=== PATIENT | male | born 1925 | race Caucasian/White ===

== ENCOUNTER 2017-01-03 21:31 | Inpatient (IN) | payer MEDICARE, OTHER ==
[~2017-01-03] VITALS: Ht 167.6 cm; Wt 66.0 kg
[2017-01-03 21:36] VITALS: BP 178/57; PULSE 106; RESP 24; O2SAT 94
--- NOTE | 2017-01-03 22:00 | ED.REPORT ---
HPI-Dyspnea / Wheezing Date of Service Jan 03, 2017 ED Provider: Wing Tavera MD An 89 year old male with a history of TIA, COPD and hypertension is brought to the ED via EMS due to shortness of breath. The pt began experiencing significant shortness of breath at 17:00, though he has been feeling the shortness of breath gradually increasing for two days. This has been accompanied by productive cough with yellow sputum. He denies chest pain, nausea or vomiting. The pt resides in assisted living. He is not on home oxygen but does have a rescue inhaler. His last use was today. The pt is taking Plavix. Nursing Notes Stated Complaint: DIFFICULTY BREATHING Chief Complaint: Respiratory Distress Nursing Notes Reviewed: Yes Allergies: Coded Allergies: iodine (Verified Allergy, Unknown, 01/03/17) General Time Seen by MD: 21:58 Chief Complaint Shortness of breath Hx Obtained From: Patient, Daughter, Other family..., EMS Arrived By: Ambulance Sudden in Onset?: No Onset Occurred: 2 days ago Symptom Duration: Since onset Recent Healthcare: Recent doctor visit, Recent hospitalization Similar Sx Previous: No Past Medical History Past Medical History TIA COPD hypertension Past Surgical History none reported Smoking History Unknown if Ever Smoker Social History Other Social History: Good social support, Lives in [facility] Ambulatory Status Walker Review of Systems Constitutional: Denies: Fever Respiratory: Reports: Prod cough, yellow, Shortness of breath Cardiovascular: Denies: Chest pain Musculoskeletal: Denies: Back pain, Neck pain Skin: Denies Rash Complete sys rev & neg: except as marked. GI: Denies: Nausea, Vomiting Physical Exam Initial Vital Signs Vital Signs (First) Date Time Temp Pulse Resp B/P Pulse Ox O2 Delivery O2 Flow Rate FiO2 01/03/17 21:36 38.0 106 24 178/57 94 Room Air 01/03/17 22:31 2 Initial VS: Reviewed General/Constitutional: Awake, Alert Neck: Atraumatic, Supple, Full range of motion Respiratory / Chest: Atraumatic, Breath sounds = bilat, No respiratory distress faint wheezes bilaterally Cardiovascular: Regular rhythm, Heart sounds NL, No murmurs Heart Rate / Rhythm: Positive: Tachycardia ENT: Atraumatic, Airway patent, Mucous membranes moist Abdomen: Atraumatic, Soft, Non-tender Back: Atraumatic, Full range of motion Lower Extremity / Pelvis / MS: Atraumatic, Full range of motion, No edema Skin: Atraumatic, Color NL, No rash, Warm, Dry Neurologic: Oriented X3, Speech NL, No motor deficits, No sensory deficits Head / Eyes: Atraumatic, Normocephalic, PERRL, EOMI Upper Extremity / MS: Atraumatic, Full range of motion Psychiatric: Affect NL, Mood NL Interpretation & Diagnostics Lab Results Interpretation Result Diagram: 01/03/17224601/03/172246 Test 01/03/17 22:47 01/03/17 23:04 01/03/17 23:58 White Blood Count 21.4th/mm3 (3.8-10.1) Red Blood Count 4.58mil/mm3 (4.40-5.80) Hemoglobin 14.4g/dL (13.8-17.2) Hematocrit 40.6% (41.0-50.0) Mean Corpuscular Volume 88.6fL (81-100) Mean Corpuscular Hemoglobin 31.4pg (27.0-35.0) Mean Corpuscular Hemoglobin Concent 35.5% (32.0-37.0) Red Cell Distribution Width 14.2% (12.3-15.4) Platelet Count 281bil/L (150-400) Neutrophils (%) (Auto) 96.5% (40-74) Lymphocytes (%) (Auto) 1.8% (14-46) Monocytes (%) (Auto) 1.3% (4-12) Eosinophils (%) (Auto) 0% (0-5) Basophils (%) (Auto) 0.1% (0-3) Prothrombin Time 10.5sec (8.1-12.5) Prothromb Time International Ratio 0.98ratio Sodium Level 132mEq/L (134-144) Potassium Level 3.5mEq/L (3.5-5.2) Chloride Level 94mEq/L (97-108) Carbon Dioxide Level 22mmol/L (18-29) Blood Urea Nitrogen 32mg/dL (8-27) Creatinine 0.82mg/dL (0.76-1.27) Estimat Glomerular Filtration Rate 94mL/min (>59) Glucose Level 94mg/dL (60-99) Lactic Acid Level 1.7mmol/L (0.4-2.0) Calcium Level 10.5mg/dL (8.5-10.1) Magnesium Level 1.5mg/dL (1.6-2.6) Total Bilirubin 0.8mg/dL (0.0-1.2) Aspartate Amino Transf (AST/SGOT) 23U/L (0-50) Alanine Aminotransferase (ALT/SGPT) 25U/L (0-44) Alkaline Phosphatase 75U/L (25-160) Troponin T 0.014ug/L (0.0-0.011) Pro-B-Type Natriuretic Peptide 2156pg/mL (0-486) Total Protein 6.8g/dL (6.4-8.4) Albumin 3.7g/dL (3.4-5.0) Urine Color Yellow (YELLOW) Urine Appearance Cloudy (CLEAR,HAZY) Urine pH 7.5 (5.0-8.0) Urine Specific Saxon 1.015 (1.003-1.035) Urine Protein Tracemg/dL (NEG,TRACE) Urine Glucose (UA) Negativemg/dL (NEGATIVE) Urine Ketones Negativemg/dL (NEGATIVE) Urine Occult Blood Trace (NEGATIVE) Urine Nitrite Positive (NEGATIVE) Urine Bilirubin Negative (NEGATIVE) Urine Urobilinogen Normalmg/dL (NORMAL) Urine Leukocyte Esterase Large (NEGATIVE) Urine RBC 3-10/hpf (0-2) Urine WBC Packed/hpf (0-5) Urine Epithelial Cells Few/hpf (NONE-MOD) Urine Crystals None seen (NONE SEEN) Urine Bacteria Many/hpf (NONE-FEW) Urine Hyaline Casts None/lpf (NONE) Urine Granular Casts None seen (NONE SEEN) Urine Waxy Casts None seen (NONE SEEN) Urine Red Blood Cell Casts None seen (NONE SEEN) Urine White Blood Cell Casts None seen (NONE SEEN) Urine Mucus None seen (None Seen) Urine Trichomonas None seen (NONE SEEN) Urine Yeast None (NONE SEEN) Urinalysis Comment None Urine Culture Reflexed Indicated Procalcitonin 0.17ng/mL (0.00-0.08) ECG Interpretation ECG Interpretation: sinus or ectopic atrial tachycardia with a rate of 103 LBBB Time: 21:51 Interpreted by: ED physician X-Ray Chest Interpretation Chest Xray Interpretation: right lower lobe pneumonia Interpretation / Wet Read by: Interpret - ED physician Re-Eval/Medical Decision Med Decision/Clinical Course 89-year-old male history of COPD, hypertension, CVA presenting with dyspnea times several days. He is not on oxygen at home. He lives in assisted living facility. Is not had any hospitalizations since August of this year when he was hospitalized for stroke. On arrival he is requiring 2 L of oxygen. Chest x-ray is suspicious right lower lobe pneumonia. Urine suggests UTI. Patient does not have any abdominal pain or urinary symptoms that he does have a history of UTI. Lactate is normal. His vital signs are stable. He is DNR/DNI. He will be admitted for Community acquired pneumonia and UTI. Given Rocephin and azithromycin after blood cultures. No fluids at this time given no evidence of sepsis and with apparent CHF and DO NOT INTUBATE therefore minimizing fluids. Source of Hx: EMS Re-Evaluation/Progress #1: Time of Eval: 21:58 Patient Status: Condition improved Re-Evaluation/Progress Note: Pt informed of the need for admission during the initial interview. The pt understands and agrees with the plan. All questions are addressed at this time. Re-Evaluation/Progress #2: Time of Eval: 23:32 Patient Status: Condition improved Re-Evaluation/Progress Note: Pt rechecked, who is resting. Radiology results and the need for admission are further discussed. 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 Hernandez, hospitalist, regarding pt's case. Dr. Hernandez agrees with the evaluation and agrees to admit the pt. Counseled Regarding: Diagnosis, Lab results, Need for admission Discharge & Departure Impression: Primary Impression: Right lower lobe pneumonia Pneumonia type: due to unspecified organism Qualified Code: J18.1 - Lobar pneumonia, unspecified organism Additional Impression: UTI (urinary tract infection) Urinary tract infection type: site unspecified Hematuria presence: without hematuria Qualified Code: N39.0 - Urinary tract infection, site not specified Disposition: ADMITTED TO HOSPITAL Discharge Condition All VS Reviewed: Yes Condition: Stable Scribe Attestation Portions of this note were transcribed by Shukri Roach. I, Dr. Tavera personally performed the history, physical exam and medical decision-making; I reviewed and confirmed the accuracy of the information in the transcribed note. Wing Tavera MD Jan 03, 2017 22:00 SHUKRI ROACH Jan 03, 2017 22:16
[2017-01-03] MEDS ORDERED: MethylprednisoLONE Sodium Succinate 62.5 mg/mL 2 mL Inj IVPUSH ONE (22:15)
[2017-01-03] MEDS ORDERED: Albuterol-Ipratropium 3 mL Inhalation Solution NEB ONE (22:15)
[2017-01-03 22:31] VITALS: PULSE 120; RESP 20; O2SAT 95
[2017-01-03 22:54] LABS: BASOPHILS % (AUTO) 0.1 % (0-3); EOSINOPHILS % (AUTO) 0 % (0-5); MONOCYTES % (AUTO) 1.3 % (4-12); Mean Corpuscular Hemoglobin 31.4 pg (27.0-35.0); Mean Corpuscular Volume 88.6 fL (81-100); NEUTROPHILS % (AUTO) 96.5 % (40-74); Platelet Count 281 bil/L (150-400)
[2017-01-03 23:06] LABS: INR 0.98 ratio
[2017-01-03 23:13] VITALS: BP 140/53; PULSE 102; RESP 23; O2SAT 95
[2017-01-03 23:15] LABS: TROPONIN T 0.014 ug/L (0.0-0.011)
[2017-01-03 23:16] LABS: APPEARANCE,URINE CLOUDY (CLEAR,HAZY); COLOR,URINE YELLOW (YELLOW); OCCULT BLOOD,URINE TRACE (NEGATIVE); PH,URINE 7.5 (5.0-8.0); UROBILINOGEN,URINE NORMAL (NORMAL)
[2017-01-03] MEDS ORDERED: 0.9% Sodium Chloride 500 ML IV ONE (23:19)
[2017-01-03] MEDS ORDERED: cefTRIAXone Inj 2,000 MG in Dextrose 5% Minibag Plus 50 ML IV ONE (23:20)
[2017-01-03] MEDS ORDERED: Azithromycin Inj 500 MG in Dextrose 5% 250 ML IV ONE (23:20)
[2017-01-03 23:27] LABS: Magnesium 1.5 mg/dL (1.6-2.6)
[2017-01-03] MEDS ORDERED: Alum-Mag Hydrox-Simeth 30 mL Suspension PO PRN ×2 (23:45)
[2017-01-03] MEDS ORDERED: Ondansetron 2 mg/mL 2 mL Inj IVPUSH PRN ×2 (23:45)
[2017-01-03] MEDS ORDERED: 0.9% Sodium Chloride 1,000 ML IV SCH (23:45)
[2017-01-03] MEDS ORDERED: Polyethylene Glycol (PEG) 17 Gm Powder PO PRN (23:45)
[2017-01-04] VITALS (15 sets, daily range): BP systolic 115–158; BP diastolic 40–72; PULSE 61–95; RESP 14–32; O2SAT 92–98
[2017-01-04] MEDS: Sodium Chloride LOK Flush 10 mL Syringe IVFLUSH SCH ×3 (00:30→17:08)
--- NOTE | 2017-01-04 02:27 | PCM.HPMED ---
Subjective Date of Service Jan 03, 2017 Primary Provider: Admitting Physician: Primary Care Physician: Twila Chang Attending Physician: Admit Status: From the Emergency Department Chief Complaint: Shortness of Breath History of Present Illness: Javi Avelar is an 89-year-old gentleman with a past medical history of transient ischemic attack, COPD, pulmonary hypertension, and hypertension presents with worsening shortness of breath starting 2 days ago. He says that he has had a productive cough with whitish-yellow sputum over the past week as well as increased difficulty breathing. At about 1700 yesterday, he began to experience significant shortness of breath. He does not use oxygen at home. He denies fevers, chills, nausea, and vomiting. He has not had any hospitalizations since August of 2016. He lives in a health center with assisted living in [place] and says that there may have been sick contacts there. He also complains of dry mouth and says that he does no drink enough water. He denies chest pain, diarrhea, constipation, or blood in stools. His last bowel movement was earlier today. He denies symptoms of urinary frequency, urgency, or hematuria, but mentions that his urine has had a foul odor recently. He has a history of urinary tract infections in the past. On arrival, his temperature was 38.0, HR 106, RR 24, 178/57, and he required oxygen 2L/min by nasal cannula. In the ED, his labs showed leukocytosis of 21.4 with neutrophilic predominance, decreased sodium 132, chloride 94, calcium 10.5 , magnesium was low 1.5, procalcitonin was 0.17, lactic acid was 1.7. His troponin was 0.014, and pro-BNP was 2156. Urinalysis was indicative of infection , showing positive nitrites, large leukocyte esterase, packed white blood cells , and many bacteria. In the ED, he received ceftriaxone and azithromycin. Review of Systems: A comprehensive review of systems was conducted with the patient and found to be negative except as above in the History of Present Illness. Allergies Coded Allergies: iodine (Verified Allergy, Unknown, 01/03/17) Home Medications Symbicort 160 mcg-4.5 mcg/actuation HFA aerosol inhaler inhale 2 puff by inhalation route 2 times every day in the morning and evening prednisone 20 mg tablet take (60MG/M2) by oral route every day for 5 days losartan 100 mg tablet take 1 tablet by oral route every day ATORVASTATIN 20MG TAB 1 TAB BY MOUTH EVERY DAY FOR CHOLESTEROL 09/29/201609/29 CLOPIDOGREL 75MG TAB 1 TAB BY MOUTH EVERY DAY FOR BLOOD CLOT PREVENTION 201609/29/2016 VENTOLIN 90MCG HFA (200 INH) INHALE 2 PUFFS BY MOUTH EVERY 4 HOURS NEEDED FOR COPD 09/29/2016 09/29/2016 LOSARTAN/HCTZ 100-25MG TAB 1 TAB BY MOUTH EVERY DAY FOR HTN 09/29/20162016 HYDRALAZINE 100MG TAB 1 TAB BY MOUTH 2 TIMES DAILY FOR HTN 09/29/20162016 SPIRIVA 18MCG DISK W/DEV INHALE 1 CAP BY MOUTH EVERY DAY FOR COPD (2 INHALATIONS PER CAPSULE) 09/29/2016 09/29/2016 CARVEDILOL 25MG TAB 1 TAB BY MOUTH 2 TIMES DAILY FOR CAD 09/29/2016 09/29/2016 PMH TIA COPD Hypertension MORELIA Hyperlipidemia BPH Surgical History None Reported Family History Brother: CAD Social History Hx Tobacco Use: Yes Smoking Status: Former Smoker Living Arrangement: Assisted Living Exam Vital Signs Vital Sign - Last Date Time Temp Pulse Resp B/P Pulse Ox O2 Delivery O2 Flow Rate FiO2 01/03/17 23:13 37.5 102 23 140/53 95 Nasal Cannula 2 Exam General: No acute distress, well-developed, well-nourished, appropriately interactive HEENT: Normocephalic, atraumatic. External ears without defect. Anicteric sclerae, moist conjunctivae. Dry mucosa. Neck: Supple with full range of motion. No jugular venous distension. No bruits. . Cardiovascular: Tachycardic, regular rhythm with no murmurs, rubs, or gallops appreciated Pulmonary: Decreased breath sounds bilaterally with crackles heard at both lung bases R>L, No wheezing. Use of accessory muscles. Abdomen: Bowel tones present. Soft, nontender, nondistended. No hepatosplenomegaly or masses appreciated. Extremities: No clubbing, cyanosis, edema, or lymphadenopathy appreciated. Skin: Dry skin, Normal temperature; no rash, ulcers, or subcutaneous nodules appreciated. Neurological: Cranial nerves grossly intact. Normal muscle strength, tone, and bulk. Reflexes, coordination, and sensory function within normal limits. Psychiatric: Normal mood and affect. Alert and oriented to person, place, and time. Lab and Diagnostics Labs Item Value Date Time Urine Color Yellow 01/03/172303 Urine Nitrite Positive 01/03/172303 Urine Leukocyte Esterase Large 01/03/172303 Urine WBC Packed /hpf 01/03/172303 Urine RBC 3-10 /hpf 01/03/172303 Urine Occult Blood Trace 01/03/172303 Urine Bacteria Many /hpf 01/03/172303 Result Diagram: 01/03/17224601/03/172246 12-lead ECG sinus or ectopic atrial tachycardia with a rate of 103 LBBB Assessment & Plan Javi Avelar is an 89-year-old gentleman with a past medical history of transient ischemic attack, COPD, pulmonary hypertension, and hypertension presents with worsening shortness of breath starting 2 days prior to admission. Sepsis secondary to UTI and Pneumonia, Present on Admission, active Meets criteria with Fever, leukocytosis and tachycardia. - Conservative IV fluid management - Patient has elevated BNP - Treat as below Pneumonia, Present on Admission, active Community Acquired Pneumonia likely as patient lives in an assisted living facility. Chest Xray shows right lower lobe consolidation. Differential includes CHF. - Recieved Ceftriaxone and azithromycin in the ED - MRSA swab, Resp Viral panel, procalcitonin, sputum culture, urinary strep pneumoniae and legionella ag - Blood cultures pending - Will continue azithromycin and ceftriaxone Complicated Urinary tract infection, Present on Admission, active UA with positive nitrite, large leukocyte esterase, packed WBC, many bacteria. - Urine cultures pending - Continue ceftriaxone COPD Exacerbation, Present on Admission, active Likely secondary to HCAP - Duoneb q4hwa - Budesonide q12h - Prednisone 40 mg for 4 more days, recieved 1 dose methylprednisolone 125 mg in the ED Hyponatremia, Present on Admission, active Sodium 132 on admission - Will hold IV fluids as patient has elevated BNP - Monitor Hypertension, Present on Admission, active Med Rec needs to be done. Per outpatient medication list, patient used to take carvedilol, hydralazine, HCTZ and losartan - Will do Carvedilol 25 mg BID for now - Continue other home meds after verified med rec History of TIA [facility], will continue Patient Status: Patient is admitted under inpatient status with expected length of stay greater than 2 midnights due to severity of presenting symptoms, risk of adverse event, and complexity of treatment plan. Code Status: DNR/DNI VTE Prophylaxis: Sub-Q Heparin (Unfractionated) VTE Mechanical Devices: Intermittant Pneumatic CD Resuscitation Status: DNR/DNI:Do Not Resuscitate/Intubate Attending Statement The patient was seen and examined together with Dr. Parnell on 01/03 and I agree with the history, exam and plan as outlined in the note above. Ellis Parnell DO Jan 04, 2017 00:00 ANTHONY CALZADA MD Jan 04, 2017 02:22 Ellis Hernandez MD Jan 04, 2017 05:24
[2017-01-04] MEDS: Heparin 5,000 Unit/mL Inj SUBQ SCH ×3 (02:43→17:09)
[2017-01-04] MEDS ORDERED: Vancomycin Inj 1,500 MG in 0.9% Sodium Chloride 500 ML IV ONE (03:00)
[2017-01-04] MEDS ORDERED: Piperacillin-Tazo 3.375 Gm Inj 3.375 GM in Dextrose 5% Minibag Plus 50 ML IV ONE (03:00)
[2017-01-04] MEDS ORDERED: 0.9% Sodium Chloride 0 ML ONE (03:11)
[2017-01-04] MEDS ORDERED: 0.9% Sodium Chloride 250 ML ONE (03:13)
[2017-01-04] MEDS ORDERED: ATOR20TA PO (04:01)
[2017-01-04] MEDS ORDERED: TIOT18CA3 IH (04:02)
[2017-01-04] MEDS ORDERED: LOSA1TAB70 PO (04:02)
[2017-01-04] MEDS ORDERED: HYDR100T27 PO (04:02)
[2017-01-04] MEDS ORDERED: FINA5TAB9 PO (04:02)
[2017-01-04] MEDS ORDERED: CARV25TA2 PO (04:02)
[2017-01-04] MEDS ORDERED: SYMINH INHALATION (04:02)
[2017-01-04] MEDS ORDERED: TAMS0.4C98 PO (04:02)
[2017-01-04] MEDS ORDERED: CLOP75TA3 PO (04:02)
--- NOTE | 2017-01-04 04:11 | ABG ---
DateTimeAnalyzed 04:05:00 -_ pH ____7.422 - 7.350 7.450 pCO2 ___32.1__ -mmHg 35.0 45.0 pO2 ___74.7__ -mmHg 69.0 116 HCO3- ___20.5__ -mmol/L 22.0 26.0 ABE ___-2.6__ -mmol/L -2.0 2.0 tHb ___12.6__ -g/dL O2Hb ___92.8__ -% COHb ____1.3__ -% MetHb ____0.8__ -% sO2 ___94.8__ -% 25.0 FIO2 ___24.0__ -% Drawn By blf - Spontaneous_RR ___20.0__ -b/min Liter_Flow ____1.0__ -L/min Oxygen Device 1 __CANNULA - B 761 -mmHg tO2 ___16.4__ -Vol% Jefferson test _Positive -
[2017-01-04 04:56] LABS: Mean Corpuscular Hemoglobin 31.1 pg (27.0-35.0); Mean Corpuscular Volume 89.6 fL (81-100); NEUTROPHILS % (AUTO) 96.6 % (40-74); Platelet Count 249 bil/L (150-400)
[2017-01-04 04:57] LABS: BASOPHILS % (AUTO) 0.1 % (0-3); EOSINOPHILS % (AUTO) 0 % (0-5); MONOCYTES % (AUTO) 1.5 % (4-12)
--- NOTE | 2017-01-04 05:19 | NUR ---
Admit/Fever Pt had an episode of fever 37.7. Administered tylenol 650mg. Upon reassessment fever went down to 36.9. Lung sounds appears to be moist and crackles. Occasional wheezes and uses accessory muscle when breathing. Has been pleasant and cooperative with care. Med rec done. Lab called for critical WBC of 38.5. Night hospitalist notified and aware of value. Will continue to monitor.
[2017-01-04 05:26] LABS: TROPONIN T 0.016 ug/L (0.0-0.011)
[2017-01-04] MEDS ORDERED: Vancomycin Dose per Pharmacist XX SCH (08:30)
[2017-01-04] MEDS ORDERED: Piperacillin-Tazo 3.375 Gm Inj 3.375 GM in Dextrose 5% Minibag Plus 50 ML IV SCH (08:30)
[2017-01-04] MEDS ORDERED: cefTRIAXone Inj 1,000 MG in Dextrose 5% Minibag Plus 50 ML IV SCH (08:30)
[2017-01-04] MEDS: Budesonide 0.5 mg/2 mL Inhalation Solution NEB SCH ×2 (08:31→21:09)
[2017-01-04] MEDS: predniSONE 20 mg Tablet PO SCH (09:24)
--- NOTE | 2017-01-04 10:48 | DRSVH ---
PROCEDURE: X-RAY CHEST ONE VIEW, PORTABLE ([id number]) INDICATIONS: SOB TECHNIQUE: One view of the chest was acquired. COMPARISON: None. FINDINGS: Surgical changes and devices: None. Lungs and pleura: Lung volumes are increased hemidiaphragms are flattened. There is mid and bibasila r patchy airspace opacities. There is mild blunting of right costophrenic angle and small right pleu ral effusion may be present. No pneumothorax. Mediastinum: Mediastinal contours appear normal. Heart size is normal. Bones and chest wall: No suspicious bony lesions. Overlying soft tissues appear unremarkable. IMPRESSION: 1. Hyperinflation suggesting underlying COPD. Correlate clinically. 2. Mid/basilar patchy air space opacities suspicious for bilateral pneumonia. 3. Mild blunting of the right costophrenic angle and small right pleural effusion may be present vers us pleural scarring. Dictated by: Omar Mcneil [facility] Interpreted: Darwin Waters MD on 01/04/2017 at 8:28 Approved by: Darwin Waters M.D. on 01/04/2017 at 10:46
--- NOTE | 2017-01-04 11:16 | PCM.PNMED ---
Subjective Date of Service Jan 04, 2017 Subjective Patient seen and examined today. Feels better today. Vitals stable. Exam Vital Signs Vital Sign - Last Date Time Temp Pulse Resp B/P Pulse Ox O2 Delivery O2 Flow Rate FiO2 01/04/17 10:49 68 01/04/17 09:38 36.3 14 141/53 94 Room Air 01/04/17 09:00 2.00 Intake and Output 01/03/17 01/03/17 01/04/17 Cumulative From/Thru 15:00 23:00 07:00 01/03/17 21:36 - 01/04/17 06:18 Intake Total 512 ml 512 ml Output Total 250 ml 250 ml Balance 262 ml 262 ml Intake Oral 0 ml 0 ml IV Total 512 ml 512 ml Output Urine Total 250 ml 250 ml # Voids 1 1 Exam General: No acute distress, well-developed, well-nourished, appropriately interactive HEENT: Normocephalic, atraumatic. External ears without defect. Anicteric sclerae, moist conjunctivae. Dry mucosa. Neck: Supple with full range of motion. No jugular venous distension. No bruits. . Cardiovascular: Tachycardic, regular rhythm with no murmurs, rubs, or gallops appreciated Pulmonary: Decreased breath sounds bilaterally with crackles heard at both lung bases R>L, No wheezing. Use of accessory muscles. Abdomen: Bowel tones present. Soft, nontender, nondistended. No hepatosplenomegaly or masses appreciated. Extremities: No clubbing, cyanosis, edema, or lymphadenopathy appreciated. Skin: Dry skin, Normal temperature; no rash, ulcers, or subcutaneous nodules appreciated. Psychiatric: Normal mood and affect. Alert and oriented to person, place, and time. Lab and Diagnostics Result Diagram: 01/04/17 04301/04/17 0430 12-lead ECG sinus or ectopic atrial tachycardia with a rate of 103 LBBB Assessment & Plan Javi Avelar is an 89-year-old gentleman with a past medical history of transient ischemic attack, COPD, pulmonary hypertension, and hypertension presents with worsening shortness of breath starting 2 days prior to admission. Sepsis secondary to UTI and Pneumonia, Present on Admission, active Meets criteria with Fever, leukocytosis and tachycardia. - Conservative IV fluid management - Patient has elevated BNP - Treat as below Pneumonia, Present on Admission, active Community Acquired Pneumonia likely as patient lives in an assisted living facility. Chest Xray shows right lower lobe consolidation. Differential includes CHF. - Recieved Ceftriaxone and azithromycin in the ED - MRSA swab, Resp Viral panel, procalcitonin, sputum culture, urinary strep pneumoniae and legionella ag - Blood cultures pending - Will continue azithromycin and ceftriaxone - ID consult Shortness of breath - likely 2/2 pneumonia - elevated BNP noticed - will get echo Positive Trops - Trended up mildly - no chest pain - likely 2/2 demand supply - will trend Complicated Urinary tract infection, Present on Admission, active UA with positive nitrite, large leukocyte esterase, packed WBC, many bacteria. - Urine cultures pending - Continue ceftriaxone COPD Exacerbation, Present on Admission, active Likely secondary to HCAP - Duoneb q4hwa - Budesonide q12h - Prednisone 40 mg for 4 more days, recieved 1 dose methylprednisolone 125 mg in the ED Hyponatremia, Present on Admission, active Sodium 132 on admission - Will hold IV fluids as patient has elevated BNP - Monitor Hypertension, Present on Admission, active Med Rec needs to be done. Per outpatient medication list, patient used to take carvedilol, hydralazine, HCTZ and losartan - Will do Carvedilol 25 mg BID for now - Continue other home meds after verified med rec BPH, present on admission, active - continue home meds: flomax and finasteride History of TIA Patient on Plavix per [facility] med list, will continue Patient Status: Patient is admitted under inpatient status with expected length of stay greater than 2 midnights due to severity of presenting symptoms, risk of adverse event, and complexity of treatment plan. Code Status: DNR/DNI VTE Prophylaxis: Sub-Q Heparin (Unfractionated) VTE Mechanical Devices: Intermittant Pneumatic CD Resuscitation Status: DNR/DNI:Do Not Resuscitate/Intubate Time spent 35 mins Sreekanth Boston MD Jan 04, 2017 11:16
--- NOTE | 2017-01-04 12:05 | NUR ---
Evaluation completed. Please go to "Notes" then click on "Assessments and Notes" (bottom left corner of screen). Then select appropriate discipline tab on top of screen.
--- NOTE | 2017-01-04 13:24 | NUR ---
Evaluation completed. Please go to "Notes" then click on "Assessments and Notes" (bottom left corner of screen). Then select appropriate discipline tab on top of screen.
--- NOTE | 2017-01-04 17:29 | NUR ---
Social Work-initial assessment: Data:See initial assessment. Pt ia a 89 y/o male who was admitted on 01/04/17 for pneumonia per H&P. Pt's insurance is [employer] out of [facility] and PCP is SULEMAN Tai. EMR Reviewed. SW met with pt to discuss discharge planning, SW role explained. Pt reside at [facility] where he remains independent with basic ADLS. Pt does not drive and uses a fww at baseline. Pt has had HH, but no SNF history. Pt has no intermediate care insurance or VA benefits. SW discussed DPOA/ advanced directive, pt confirms this has been completed, SW encouraged a copy to be brought in. SW attempted to reach daughter. SW to follow up with [facility] tomorrow to determine if they will need to complete bedside assessment prior to return. SW provided pt with discharge planning checklist and encouraged him to call with questions, phone number provided. SW will continue to follow. Assessment:pt who resides at [facility] living. Plan:Pt to likely discharge back to [facility] When medically stable. SW to follow up with [facility] tomorrow to determine if they will need to complete bedside assessment prior to return. SW will continue to follow. DOREEN Rodriguez Addendum: 01/04/17 at 1735 by SHARLA NAIR Amended: Links added.
--- NOTE | 2017-01-04 18:25 | NUR ---
Precautions Pt taken off all precautions per Dr Esteban request. Sputum culture pending, all others back and negative.
--- NOTE | 2017-01-04 19:21 | CONS ---
[address] [address] CONSULTATION REPORT PATIENT: YASMANY MARIE : 1925 MR#: [id number] ADMIT: 01/04/2017 JOB ID: [id number] DATE OF SERVICE: 01/04/[address] Boston for this timely consult. REASON FOR CONSULTATION: Pulmonary infiltrate with possible urinary tract infection. HISTORY OF PRESENT ILLNESS: The patient is an 89-year-old gentleman who was admitted to this facility for the first time after an ED visit on February 03. The patient is ordinarily followed in [facility] at [facility] and he just recently moved from [place] where he lived most of his life to [facility]. He reports that his in June and following her he and his daughter sold his large home in [place] and he has now moved to a intermediate community in [facility]. The patient is known to have underlying COPD and pulmonary hypertension. He reports he is usually in reasonably good health and he can walk a considerable distance without oxygen, but that recently, starting on or about January 01, he developed increasing shortness of breath which was becoming quite problematic even when he was at rest. He noticed that in conjunction with this increasing shortness of breath he had an increase over his minimal nonproductive baseline cough and was starting to produce some purulent sputum. He denies having had any fevers, chills, or sweats prior to his ED visit and admission on the . He also denies having any urgency, frequency or dysuria at any time. He was admitted on January 03, yesterday, and started on azithromycin and ceftriaxone because of pulmonary infiltrates seen on chest radiograph as well as the finding of pyuria though he did not have urinary symptoms. At this point, he has only been in the hospital one day, but he reports his shortness of breath is already improving and he is able to get around quite a bit better. ID consultation is requested regarding appropriate antibiotic management. PAST MEDICAL HISTORY: 1. COPD. 2. Pulmonary hypertension. 3. TIA history. 4. Hypertension. SOCIAL HISTORY: The patient smoked until 28 years ago when he quit. He used to be a social drinker, having a glass of wine a day or so but lately has lost his taste for that and quit. As noted, he is recently with his having back in June. He now lives in [place] at an adult facility. 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 FAMILY HISTORY: Negative for tuberculosis in first degree relatives. REVIEW OF SYSTEMS: Done. The patient reports no significant headache. He has had no acute change in his vision, no sore throat or trouble swallowing, no problems with his teeth. No stiff neck. He has had increasing shortness of breath and, of course, that is the reason he came in this time. He has also had some minimal sputum production. No chest pain noted. No flank pain. No nausea, vomiting, or diarrhea. No dysuria, urgency, or frequency. He does have a considerable amount of sciatica, especially on the right and notes that he has pain in both ankles from time to time which he attributes to a unilateral ankle injury he suffered many years ago, but his ankle pain now is bilateral and to some degree his sciatica and ankle pain limit his ability to walk rather than shortness of breath when he is in his usual state of health. Remainder of the review of systems was negative. PHYSICAL EXAMINATION: Reveals an afebrile gentleman, temperature 36.3, he was 38.0 when he came in and has been afebrile since, pulse 73, respiratory rate 16, blood pressure 143/73, saturating well on room air. He is in no acute distress and is able to give an excellent history. He is fully oriented. Head without trauma. No temporal wasting. Eyes without conjunctivitis or scleral icterus. Oral cavity without thrush or hairy leukoplakia. No pharyngitis is seen. His neck is without adenopathy or JVD. His lungs are notable for decreased breath sounds bilaterally with a few crackles at the right great than the left base. Cardiac tones are very distant, regular rate and rhythm, and I cannot appreciate any murmur. The abdomen is soft and nontender without organomegaly. There is no inguinal adenopathy. The penis and scrotum were normal. There is minimal edema around the ankles bilaterally about 1+. Both feet are well perfused and without evidence of skin breakdown or injury. There is no evidence for cellulitis or synovitis. Neurologically, he is quite intact. LABORATORIES: Include white count 21,000 yesterday, up to 38,000 today but do note that he started to receive steroids because of possible COPD exacerbation. Platelet count normal 249, creatinine 0.86. Pro calcitonin 0.17 on admission last night. This morning, 1.6. Urinalysis was packed with white cells, 3-10 red cells were seen. Serologic studies include negative urine Legionella and pneumococcal antigens. Blood cultures done on admission are negative so far. Respiratory viral PCR panel negative. Sputum culture had to be reincubated and we are waiting on additional results from the sputum culture. MRSA screen of the nares is negative. BNP was elevated to 2156. I carefully reviewed the chest x-ray which shows COPD as well as some bilateral infiltrates greater on the right than the left. We do not have the prior x-ray to compare to as the patient hails from [facility] and has been getting care at [facility], so it is hard to know what the infiltrates represent, whether they are scarring or old or new. IMPRESSION: This is a nontoxic, elderly gentleman who was admitted for shortness of breath. Whether his shortness of breath is more on the basis of some mild congestive heart failure, worsening chronic obstructive pulmonary disease or pneumonia remains unclear, but in view of his rising pro calcitonin, I think we should take the possibility of pneumonia seriously and treat him. I am in agreement with the azithromycin and ceftriaxone which were started. As to whether he has a urinary tract infection, I am inclined to doubt it. The patient does have pyuria and I am sure his urine culture will eventually yield an organism, but he has no symptoms of urinary tract infection and therefore I think he has asymptomatic bacteriuria for which he does not need any therapy. RECOMMENDATIONS: 1. Will continue with azithromycin and ceftriaxone. 2. We await the pending cultures and other studies. 3. Depending on his course, it may be reasonable to discharge him in the very near future on an oral agent to cover the possibility of basically community-acquired pneumonia. The patient is nontoxic, and I think it is probably reasonable to start getting him up and "road test" him for a bit to make sure he is ready to return to [facility].
[2017-01-04] MEDS: cefTRIAXone Inj 2,000 MG in Dextrose 5% Minibag Plus 50 ML IV SCH (20:40)
[2017-01-04] MEDS: Fluticasone-Salmeterol 500-50 Inhaler INHALATION SCH (20:40)
[2017-01-04] MEDS: Albuterol-Ipratropium 3 mL Inhalation Solution NEB PRN (20:51)
[2017-01-05] VITALS (11 sets, daily range): BP systolic 149–170; BP diastolic 66–84; PULSE 60–90; RESP 16–18; O2SAT 93–96
[2017-01-05] MEDS: Heparin 5,000 Unit/mL Inj SUBQ SCH ×3 (00:43→16:47)
[2017-01-05] MEDS: Sodium Chloride LOK Flush 10 mL Syringe IVFLUSH SCH ×3 (00:45→16:48)
--- NOTE | 2017-01-05 04:28 | NUR ---
activity Pt remained in bed for shift. no complaints of pain or discomfort. Will continue monitor.
--- NOTE | 2017-01-05 07:21 | DRSVH ---
[facility] [address] [place] [address] Echocardiogram Report Name: YASMANY MARIE FStudy Date : 01/04/2017 Height: 66 in Hospital Exam Location: [facility] Weight: 147 lb Gender: Male BSA: 1.8 m2 : 1925 Age: 89 yrs BP: 141/53 mmHg Reason For Study: Shortness of Breath Ordering Physician: HOSPITALIST [facility] Performed By: Estrella Boggs Referring Physician: Bobo Hospitalist Interpretation Summary Left ventricular wall thickness is moderately increased. Left ventricular systolic function is mildly reduced. The ejection fraction is estimated to be 45-50%. There is mild global hypokinesis of the left ventricle. There is a mild dyssynchronous contraction pattern, consistent with a conduction abnormality. The right ventricle is normal size. The right ventricular systolic function is normal. The right ventricular systolic pressure is estimated at 32 mmHg assuming a right atrial pressure of 8 mm Hg. Borderline left atrial enlargement. The right atrium is moderately dilated. There is mild aortic regurgitation. There is no other significant valvular heart disease. The aortic root is normal size. There is a trivial pericardial effusion noted. Procedure: A two-dimensional transthoracic echocardiogram with color flow and Doppler was performed. The study quality was technically adequate. There is no prior echocardiogram noted for this patient. A contrast injection of Definity was performed to improve assessment of LV function. The patient was imaged in an upright position due to inability to lay supine. The patient was in normal sinus rhythm during the exam. Left Ventricle: The left ventricle is normal in size. Left ventricular wall thickness is moderately increased. Left ventricular systolic function is mildly reduced. The ejection fraction is estimated to be 45-50%. There is mild global hypokinesis of the left ventricle. There is a mild dyssynchronous contraction pattern, consistent with a conduction abnormality. Right Ventricle: The right ventricle is normal size. The right ventricular systolic function is normal. Atria: Borderline left atrial enlargement. The right atrium is moderately dilated. The interatrial septum is intact with no evidence for an atrial septal defect. Mitral Valve: The mitral valve leaflets appear mildly thickened, but open well. There is mild mitral annular calcification. There is trace mitral regurgitation. Aortic Valve: The aortic valve is not well visualized. There is mild aortic regurgitation. Tricuspid Valve: The tricuspid valve leaflets are thin and pliable. There is trace tricuspid regurgitation. The right ventricular systolic pressure is estimated at 32 mmHg assuming a right atrial pressure of 8 mm Hg. Pulmonic Valve: The pulmonic valve is not well seen, but is grossly normal. There is trace pulmonic regurgitation. There is no other significant valvular heart disease. Great Vessels: The aortic root is normal size. The ascending aorta could not be visualized. The IVC is dilated (diameter is greater than 2.1 cm) yet it collapses greater than 50% with a sniff. This suggests a right atrial pressure of 8 mm Hg. Pericardium/ Pleura There is a trivial pericardial effusion noted. There is an anterior echo-free space consistent with a fat pad. There is no pleural effusion. MMode/2D Measurements & Calculations LVIDd: 4.7 cm LA A2 area RA long axis LV mejia. diameter/BSA LVIDs: 3.4 cm (cm/m^2): 2.7 FS: 28.7 % RA area IVSd: 1.6 cm LA A4 area LVPWd: 1.7 cm : 23.1 cm LA length (vol) RA vol : 86.9 ml LA vol: 59.5 ml RA LA vol index : 49.5 mm2 IVC diam: 2.8 cm LV sys. diameter/BSA TAPSE: 2.7 cm (cm/m^2): 1.9 Doppler Measurements & Calculations Ao V2 max MV E max facundo MV E/A: 0.51 TR max facundo : 165.5 cm/sec : 58.6 cm/sec : 242.2 cm/sec Ao max P.0 mmHgMV A max facundo TR max PG Ao mean P.7 mmH.2 cm/sec : 24.1 mmHg LVOT Max Facundo PA V2 max : 122.2 cm/sec : 103.7 cm/sec sev ratio: 0.72 PA mean PG : 2.6 mmHg Ao V2 mean LV V1 max PG PA V2 mean : 113.3 cm/sec : 76.8 cm/sec Ao V2 VTI: 33.7 cm LV V1 VTI: 24.4 cm PA pr(Accel) : 49.4 mmHg Reading Physician:PM
[2017-01-05 07:46] LABS: EOSINOPHILS % (AUTO) 0 % (0-5); Mean Corpuscular Volume 89.4 fL (81-100)
[2017-01-05 07:50] LABS: BASOPHILS % (AUTO) 0.1 % (0-3); MONOCYTES % (AUTO) 3.1 % (4-12); Mean Corpuscular Hemoglobin 30.9 pg (27.0-35.0); NEUTROPHILS % (AUTO) 93.9 % (40-74); Platelet Count 234 bil/L (150-400)
[2017-01-05] MEDS: Budesonide 0.5 mg/2 mL Inhalation Solution NEB SCH ×2 (08:22→20:46)
[2017-01-05] MEDS: Albuterol-Ipratropium 3 mL Inhalation Solution NEB PRN (08:23)
--- NOTE | 2017-01-05 08:42 | NUR ---
Spoke with [facility] Henriquez and they typically would come and do a reassessment after 72 hours. Let her know patient has already been cleared by PT to return. She said then most likely she will not need to come and see patient. Will fax update to them after morning rounds. [phone](FAX). Updated NETWORK ARCHITECT MANAGER
[2017-01-05] MEDS: Tiotropium 18mcg/Cap 5 Capsule Inhaler Kit INHALATION SCH (08:49)
[2017-01-05] MEDS: Fluticasone-Salmeterol 500-50 Inhaler INHALATION SCH ×2 (08:49→20:09)
[2017-01-05] MEDS: predniSONE 20 mg Tablet PO SCH (08:51)
--- NOTE | 2017-01-05 11:32 | PCM.PNMED ---
Subjective Date of Service Jan 05, 2017 Subjective Patient seen and examined. Doing good today. Cough still there. Vitals stable. Exam Vital Signs Vital Sign - Last Date Time Temp Pulse Resp B/P Pulse Ox O2 Delivery O2 Flow Rate FiO2 01/05/17 11:03 90 01/05/17 09:44 36.6 16 149/75 95 Room Air 01/04/17 21:11 2.00 Intake and Output 01/04/17 01/04/17 01/05/17 Cumulative From/Thru 15:00 23:00 07:00 01/03/17 21:36 - 01/05/17 06:19 Intake Total 342 ml 100 ml 954 ml Output Total 175 ml 250 ml 675 ml Balance 167 ml -150 ml 279 ml Intake Oral 250 ml 100 ml 350 ml IV Total 92 ml 604 ml Output Urine Total 175 ml 250 ml 675 ml # Voids 1 2 # Bowel Movements 1 1 Exam General: No acute distress, well-developed, well-nourished, appropriately interactive HEENT: Normocephalic, atraumatic. External ears without defect. Anicteric sclerae, moist conjunctivae. Dry mucosa. Cardiovascular: Tachycardic, regular rhythm with no murmurs, rubs, or gallops appreciated Pulmonary: Decreased breath sounds bilaterally with crackles heard at both lung bases R>L, No wheezing. Use of accessory muscles. Abdomen: Bowel tones present. Soft, nontender, nondistended. No hepatosplenomegaly or masses appreciated. Psychiatric: Normal mood and affect. Alert and oriented to person, place, and time. Lab and Diagnostics Result Diagram: 01/05/17 0725 01/05/17 0725 12-lead ECG sinus or ectopic atrial tachycardia with a rate of 103 LBBB Cardiac Echo Impressions Left ventricular wall thickness is moderately increased. Left ventricular systolic function is mildly reduced. The ejection fraction is estimated to be 45-50%. There is mild global hypokinesis of the left ventricle. There is a mild dyssynchronous contraction pattern, consistent with a conduction abnormality. The right ventricle is normal size. The right ventricular systolic function is normal. The right ventricular systolic pressure is estimated at 32 mmHg assuming a right atrial pressure of 8 mm Hg. Borderline left atrial enlargement. The right atrium is moderately dilated. There is mild aortic regurgitation. There is no other significant valvular heart disease. The aortic root is normal size. There is a trivial pericardial effusion noted. Assessment & Plan Javi Avelar is an 89-year-old gentleman with a past medical history of transient ischemic attack, COPD, pulmonary hypertension, and hypertension presents with worsening shortness of breath starting 2 days prior to admission. Sepsis secondary to UTI and Pneumonia, Present on Admission, active Meets criteria with Fever, leukocytosis and tachycardia. - Conservative IV fluid management - Patient has elevated BNP - Treat as below Pneumonia, Present on Admission, active Community Acquired Pneumonia likely as patient lives in an assisted living facility. Chest Xray shows right lower lobe consolidation. Differential includes CHF. - Recieved Ceftriaxone and azithromycin in the ED - MRSA swab, Resp Viral panel, procalcitonin, sputum culture, urinary strep pneumoniae and legionella ag - Blood cultures pending - Will continue azithromycin and ceftriaxone - ID consult , appreciate recs CHF (EF 45-50%), new onset - elevated BNP noticed - Echo as noted above., EF 45-50%, global hypokinesia - will get cardio consult Positive Trops - Trended up mildly and then trended down - no chest pain - likely 2/2 demand supply, echo noted - Cardio consult Complicated Urinary tract infection, Present on Admission, active UA with positive nitrite, large leukocyte esterase, packed WBC, many bacteria. - Urine cultures pending - Continue ceftriaxone COPD Exacerbation ( acute on chronic resp failure), Present on Admission, active Likely secondary to HCAP - Duoneb q4hwa - Budesonide q12h - Prednisone 40 mg for 4 more days, recieved 1 dose methylprednisolone 125 mg in the ED Hyponatremia, Present on Admission, active Sodium 132 on admission - Will hold IV fluids as patient has elevated BNP - Monitor Hypertension, Present on Admission, active - continue home meds BPH, present on admission, active - continue home meds: flomax and finasteride History of TIA Patient on Plavix per [employer] med list, will continue Patient Status: Patient is admitted under inpatient status with expected length of stay greater than 2 midnights due to severity of presenting symptoms, risk of adverse event, and complexity of treatment plan. Code Status: DNR/DNI VTE Prophylaxis: Sub-Q Heparin (Unfractionated) VTE Mechanical Devices: Intermittant Pneumatic CD Resuscitation Status: DNR/DNI:Do Not Resuscitate/Intubate Time spent 35 mins Sreekanth Boston MD Jan 05, 2017 11:32 Sreekanth Boston MD Jan 05, 2017 11:32 Sreekanth Boston MD Jan 05, 2017 11:32 Sreekanth Boston MD Jan 05, 2017 11:32 Sreekanth Boston MD Jan 05, 2017 11:32
[2017-01-05] MEDS ORDERED: guaiFENesin 20 mg/mL 10 mL Syrup PO PRN (11:35)
[2017-01-05] MEDS: cefTRIAXone Inj 2,000 MG in Dextrose 5% Minibag Plus 50 ML IV SCH (20:12)
[2017-01-06] VITALS (8 sets, daily range): BP systolic 148–177; BP diastolic 53–76; PULSE 60–80; RESP 16–20; O2SAT 93–100
[2017-01-06] MEDS: Sodium Chloride LOK Flush 10 mL Syringe IVFLUSH SCH ×3 (01:15→17:22)
[2017-01-06] MEDS: Heparin 5,000 Unit/mL Inj SUBQ SCH ×3 (01:17→17:22)
--- NOTE | 2017-01-06 02:05 | NUR ---
Ox Sats Pt sats well on RA, pt had the continuos pulse ox on overnight with good results. Pt has been having sats in the mid to upper 90's. Pt is able to get up with 1 PA and FWW to the BR and to the chair for meals.
[2017-01-06 06:52] LABS: BASOPHILS % (AUTO) 0 % (0-3); EOSINOPHILS % (AUTO) 0 % (0-5); Mean Corpuscular Hemoglobin 31.1 pg (27.0-35.0); Mean Corpuscular Volume 89.4 fL (81-100); NEUTROPHILS % (AUTO) 90.2 % (40-74); Platelet Count 242 bil/L (150-400)
[2017-01-06] MEDS: Tiotropium 18mcg/Cap 5 Capsule Inhaler Kit INHALATION SCH (08:25)
[2017-01-06] MEDS: Fluticasone-Salmeterol 500-50 Inhaler INHALATION SCH ×2 (08:25→20:35)
[2017-01-06] MEDS: predniSONE 20 mg Tablet PO SCH (08:27)
[2017-01-06] MEDS: Budesonide 0.5 mg/2 mL Inhalation Solution NEB SCH ×2 (08:30→21:29)
--- NOTE | 2017-01-06 12:19 | NUR ---
Social Work-continued d/c planning: Data:EMR reviewed. Pt is on day 2 of hospitalization for Pneumonia per H&P. Pt is not medically stable anticipate 2-3 more days. PT has cleared pt for home with HH services. ST also is involved. RUBI received a call from Zenobia at [facility] who states she would like an update. SW asked if clinicals had not been received and Zenobia states she had not been told that we had called yesterday. Zenobia confirms pt is already on services with them for PT. Zenobia states that she will need to be called tomorrow to determine if she can come in to complete reassessment. Updated clinicals faxed to [phone]. SW will continue to follow. Assessment:pt who resides at Assisted living. Plan:Pt to discharge back to [facility] when medically stable. Zenobia from [facility] will need to come and reassess pt prior to return, SW to call Zenobia tomorrow. Pt is already set up with PT services at [facility], no HH services needed. RUBI will continue to follow. DOREEN Rodriguez
[2017-01-06] MEDS ORDERED: Codeine-guaiFENesin 10 mL Syrup PO PRN (13:20)
--- NOTE | 2017-01-06 13:24 | PCM.PNMED ---
Subjective Date of Service Jan 06, 2017 Subjective Patient seen and examined. Complains of cough still. Vitals stable. Exam Vital Signs Vital Sign - Last Date Time Temp Pulse Resp B/P Pulse Ox O2 Delivery O2 Flow Rate FiO2 01/06/17 11:32 36.7 77 18 148/53 96 Room Air 01/04/17 21:11 2.00 Intake and Output 01/05/17 01/05/17 01/06/17 Cumulative From/Thru 15:00 23:00 07:00 01/03/17 21:36 - 01/06/17 06:23 Intake Total 760 ml 100 ml 1814 ml Output Total 390 ml 350 ml 1415 ml Balance 370 ml -250 ml 399 ml Intake Oral 760 ml 100 ml 1210 ml IV Total 604 ml Output Urine Total 390 ml 350 ml 1415 ml # Voids 2 # Bowel Movements 1 2 Exam General: No acute distress, well-developed, well-nourished, appropriately interactive HEENT: Normocephalic, atraumatic. External ears without defect. Anicteric sclerae, moist conjunctivae. Dry mucosa. Cardiovascular: Tachycardic, regular rhythm with no murmurs, rubs, or gallops appreciated Pulmonary: Decreased breath sounds bilaterally with crackles heard at both lung bases R>L, No wheezing. Use of accessory muscles. Abdomen: Bowel tones present. Soft, nontender, nondistended. No hepatosplenomegaly or masses appreciated. Psychiatric: Normal mood and affect. Alert and oriented to person, place, and time. Lab and Diagnostics Result Diagram: 01/06/1761401/06/1715 12-lead ECG sinus or ectopic atrial tachycardia with a rate of 103 LBBB Cardiac Echo Impressions Left ventricular wall thickness is moderately increased. Left ventricular systolic function is mildly reduced. The ejection fraction is estimated to be 45-50%. There is mild global hypokinesis of the left ventricle. There is a mild dyssynchronous contraction pattern, consistent with a conduction abnormality. The right ventricle is normal size. The right ventricular systolic function is normal. The right ventricular systolic pressure is estimated at 32 mmHg assuming a right atrial pressure of 8 mm Hg. Borderline left atrial enlargement. The right atrium is moderately dilated. There is mild aortic regurgitation. There is no other significant valvular heart disease. The aortic root is normal size. There is a trivial pericardial effusion noted. Assessment & Plan Javi Avelar is an 89-year-old gentleman with a past medical history of transient ischemic attack, COPD, pulmonary hypertension, and hypertension presents with worsening shortness of breath starting 2 days prior to admission. Sepsis secondary to UTI and Pneumonia, Present on Admission, active, resolving Meets criteria with Fever, leukocytosis and tachycardia. - Conservative IV fluid management - Patient has elevated BNP - Treat as below Pneumonia, Present on Admission, active Community Acquired Pneumonia likely as patient lives in an assisted living facility. Chest Xray shows right lower lobe consolidation. Differential includes CHF. - Recieved Ceftriaxone and azithromycin in the ED - MRSA swab, Resp Viral panel, procalcitonin, sputum culture, urinary strep pneumoniae and legionella ag - Blood cultures negative - Will continue azithromycin and ceftriaxone - ID consult , appreciate recs CHF (EF 45-50%), new onset - elevated BNP noticed - Echo as noted above., EF 45-50% - will get cardio consult Positive Trops - Trended up mildly and then trended down - no chest pain - likely 2/2 demand supply, echo noted - Cardio consult Complicated Urinary tract infection, Present on Admission, active UA with positive nitrite, large leukocyte esterase, packed WBC, many bacteria. - - Urine culture noted, positive for Morganell Morgani most sensitive to ceftriaxone, will continue ceftriaxone COPD Exacerbation ( acute on chronic resp failure), Present on Admission, active Likely secondary to HCAP - Duoneb q4hwa - Budesonide q12h - Prednisone 40 mg for 3 more days, recieved 1 dose methylprednisolone 125 mg in the ED Hyponatremia, Present on Admission, active Sodium 132 , stable - asymptomatic - Will hold IV fluids as patient has elevated BNP - Monitor Hypertension, Present on Admission, active - continue home meds BPH, present on admission, active - continue home meds: flomax and finasteride History of TIA Patient on Plavix per [employer] med list, will continue Patient Status: Patient is admitted under inpatient status with expected length of stay greater than 2 midnights due to severity of presenting symptoms, risk of adverse event, and complexity of treatment plan. Code Status: DNR/DNI VTE Prophylaxis: Sub-Q Heparin (Unfractionated) VTE Mechanical Devices: Intermittant Pneumatic CD Resuscitation Status: DNR/DNI:Do Not Resuscitate/Intubate Time spent 35 mins Sreekanth Boston MD Jan 06, 2017 13:23
[2017-01-06] MEDS: Albuterol-Ipratropium 3 mL Inhalation Solution NEB PRN ×2 (16:07→21:29)
--- NOTE | 2017-01-06 17:30 | NUR ---
Activity Pt has rested quietly through out the day, was up to chairs for breakfast and lunch. This RN offered to walk in the ramos with pt, offer was declined. Pt reports is feeling "very tired", declined offer of dinner, requested a warm blanket. Warm blanket given with cup of hot broth, pt encouraged to try and sip on broth for dinner. Call light in reach, intentional rounding in place.
--- NOTE | 2017-01-06 20:06 | PROG NOTE ---
[address] [address] PROGRESS NOTE PATIENT: YASMANY MARIE : 1925 MR#: [id number] ADMIT: 01/04/2017 JOB ID: [id number] INFECTIOUS DISEASE FOLLOWUP: DATE: 01/06/2017 REASON FOR FOLLOWUP: Possible pulmonary infection and possible urinary tract infection. INTERVAL HISTORY: Today, the patient reports no fevers, chills, or sweats. He said he is gradually feeling better and stronger. He has no significant cough though he does have some chronic wheezing which is a longstanding problem for him. He denies any dysuria, urgency, frequency, or abdominal pain. PHYSICAL EXAMINATION: Reveals an afebrile and calm gentleman. Temp 36.6, pulse 66, respiratory 20, blood pressure 157/76. He is saturating well on room air, in no acute distress and is conversational. His oral cavity is unremarkable. His lungs with wheezes bilaterally. Cardiac tones without new murmur. Abdomen soft and nontender. He does not have a العلي catheter. LABORATORY DATA: Labs include white count 21,000 when he came in, it jumped to 38,000 with the addition of steroids. It has now settled down to 20,000, 90% segs, which would be consistent with steroid use. His creatinine is 0.77. Procalcitonin was last measured two days ago and was 1.59. Urinalysis had packed white cells, and that urine grew Morganella which was quite resistant to many standard antibiotics but was sensitive to ceftriaxone as well as cefepime and ertapenem. Other cultures available include sputum which was basically negative, very few polys. MRSA screen that was negative. Respiratory viral PCR panel was negative and blood cultures were negative. Urine Legionella and pneumococcal antigens were negative. IMAGING: Recall that his chest x-ray which I reviewed yesterday shows some subtle infiltrates which could be compatible with bacterial pneumonia. IMPRESSION: This is a bit of a confusing case of a nontoxic gentleman who was admitted from an assisted living facility for shortness of breath. He does have underlying chronic obstructive pulmonary disease and this may simply be a chronic obstructive pulmonary disease exacerbation; but he did have a high white count and procalcitonin which is of course worrisome. He is currently being treated with azithromycin and ceftriaxone. As to whether he may have a urinary tract infection, I continue to doubt it but I am a bit concerned as he has heavy pyuria and did grow a fairly resistant organism. RECOMMENDATIONS: 1. Will switch the ceftriaxone to ertapenem and continue the azithromycin a bit longer. 2. Will check a procalcitonin for tomorrow morning. 3. Will continue to closely watch this complex gentleman.
[2017-01-06] MEDS: Ertapenem Inj 1,000 MG in 0.9% Sodium Chloride 50 ML IV SCH (20:30)
[2017-01-07] VITALS (10 sets, daily range): BP systolic 143–176; BP diastolic 61–81; PULSE 56–81; RESP 16–20; O2SAT 93–97
[2017-01-07] MEDS: Sodium Chloride LOK Flush 10 mL Syringe IVFLUSH SCH ×3 (00:23→17:07)
[2017-01-07] MEDS: Heparin 5,000 Unit/mL Inj SUBQ SCH ×3 (00:23→17:07)
--- NOTE | 2017-01-07 06:24 | NUR ---
Mentation Woke in middle of the night confused to place and time, mentioned "I didn't know where I was but thought I had to leave" Oriented to room and rested the rest of the night without incident.
[2017-01-07 06:58] LABS: BASOPHILS % (AUTO) 0 % (0-3); EOSINOPHILS % (AUTO) 0 % (0-5); MONOCYTES % (AUTO) 8.6 % (4-12); Mean Corpuscular Volume 89.4 fL (81-100); NEUTROPHILS % (AUTO) 82.8 % (40-74); Platelet Count 247 bil/L (150-400)
--- NOTE | 2017-01-07 07:07 | CONS ---
[address] [address] CONSULTATION REPORT PATIENT: YASMANY MARIE : 1925 MR#: [id number] ADMIT: 01/04/2017 JOB ID: [id number] DATE OF SERVICE: 01/06/2017 CHIEF COMPLAINT: Shortness of breath. HISTORY OF PRESENT ILLNESS: The patient is an 89-year-old man with COPD and a history of cardiomyopathy who presents with worsening shortness of breath, cough and fatigue. Cardiology is consulted to assist with management for possible role that CHF exacerbation may explain his condition. Right now, the patient says he is feeling better and today he wanted to mostly to talk about the struggles he suffered as a father and challenges he has in his family, more so than about his physical debility. PAST MEDICAL HISTORY: 1. Severe depression. Apparently after patient's about a year ago, he stopped eating and had to be hospitalized for weakness. Subsequently, he moved from his home to assisted living facility in [place], closer to his daughter. 2. Severe COPD. Most recent pulmonary function testing, July 2016, showed FEV1 of 0.74 L or 39% predicted. FVC 1.95 or 68% predicted. The patient is closely monitored by Dr. Helms of [facility]. 3. Obstructive sleep apnea. 4. Benign prostatic hypertrophy. 5. Pulmonary hypertension. 6. Low back pain. 7. Kidney stones. 8. Hyperlipidemia. a. Cardiomyopathy - most recent echocardiogram performed at [facility], August 17, 2016, demonstrated ejection fraction of 45%; moderate aortic regurgitation, mild mitral regurgitation, mildly elevated pulmonary artery systolic pressure and likely patent foramen ovale with caarp-rh-qowa saline shunts. The patient had moderate left atrial enlargement and moderate mitral annular calcification. The patient thinks he may have had stents in the past but does not know for sure. He does not have any stent card available for review. 9. COPD. 10. Left bundle branch block - old. FAMILY HISTORY: Brother at age 77 of heart attack. Father at 46 of heart disease. SOCIAL HISTORY: The patient's in June and he is quite tearful about that, especially the struggles she suffered with dementia. He lives in [place] assisted living and his daughter lives in [facility] and is helping him quite a bit. He has three daughters but unfortunately he is estranged from one of them and the other daughter due to lung cancer. He is still struggling with the multiple losses he suffered recently. REVIEW OF SYSTEMS: Significant for shortness of breath and cough productive of greenish sputum. He denies chest pain. He denies fever, chills or rigors. He denies unintentional weight loss. He denies nausea, vomiting, diarrhea, constipation. He reports the weakness, otherwise 10 point review of systems is negative. ALLERGIES: 1. AMLODIPINE. 2. . 3. CEPHALOSPORIN. 4. IODINE. 5. METOPROLOL. CURRENT MEDICATIONS: In the hospital: 1. Lipitor 20 mg daily. 2. Plavix 75 mg daily. 3. Hydrochlorothiazide 25 mg daily. 4. Coreg 25 mg twice a day. 5. Hydralazine 100 mg twice a day. 6. Losartan 100 mg daily. 7. Prednisone 40 mg daily. 8. Pulmicort. 9. Spiriva. 10. Advair. 11. Flomax. 12. Subcu heparin. 13. Ceftriaxone/azithromycin. PHYSICAL EXAMINATION: Vital signs: Temperature 36.8, blood pressure 148/63 up to 177/70. His heart rate is 60, up to 80 beats per minute. He is saturating 93-100% on room air. Very pleasant man in no apparent distress. Eyes: No scleral icterus. Neck is supple. No lymphadenopathy. No carotid bruit. On physical exam, thin, elderly man in no apparent distress. Eyes: No scleral icterus. Neck supple. No lymphadenopathy. No carotid bruits. Heart: Normal S1, S2. No murmurs, rubs or gallops. Lungs: Clear to auscultation anteriorly. Abdomen is soft, positive bowel sounds. No hepatosplenomegaly. Extremities: Warm, well perfused. No clubbing, cyanosis or edema. Skin: No rashes or lesions. DIAGNOSTIC STUDIES: EKG with old left bundle branch block. Chest x-ray interpreted by radiologist showed hyperinflation suggestive for underlying COPD, mild basilar patchy airspace disease suspicious for bilateral pneumonia and mild blunting of the right costophrenic angle and small right pleural effusion which may represent parapneumonic effusion versus pleural scarring. Echocardiogram performed January 04 showed the EF 45-50%, mild global hypokinesis, Desynchronous contraction. No significant valvular abnormality and trivial pericardial effusion. Pulmonary artery systolic pressure is 32 mmHg. ASSESSMENT AND PLAN: This is an 89-year-old man. He comes in with COPD exacerbation. He has chronic stable mild cardiomyopathy which etiology is unknown. His ejection fraction is unchanged compared to prior study performed in [facility], June 2016. The challenges we are facing with this patient that his blood pressure is uncontrolled. This is happening despite maximum dose of losartan, hydrochlorothiazide, carvedilol and hydralazine. His notes from [facility], suggests that he carries an allergy to AMLODIPINE. I would recommend that we not start him on this calcium channel austin as a result. Explained a little bit more about the nature of his allergic reaction. We could attempt an alternative calcium channel austin such as felodipine once I can be sure that he does not have some anaphylactic reaction to that medication. Other options include switching him to an alternative angiotensin receptor austin such as valsartan because losartan is its metabolism can be subpar in some individuals with reduced system activity. Other than managing this patient's blood pressure, I think my role here is quite limited. Plavix was started, from what I understand after a possible transient ischemic attack in June 2016. MRI showed at that time ischemic microvascular disease with no evidence of acute infarction or hemorrhage. I think it is reasonable to continue this medication since he is tolerating it well. At this time cardiology will sign off but we are available to assist as needed. Thank you very much for the opportunity to evaluate him.
[2017-01-07] MEDS: Budesonide 0.5 mg/2 mL Inhalation Solution NEB SCH ×2 (07:21→19:52)
[2017-01-07] MEDS: Albuterol-Ipratropium 3 mL Inhalation Solution NEB PRN (07:21)
[2017-01-07] MEDS: Fluticasone-Salmeterol 500-50 Inhaler INHALATION SCH ×2 (08:28→20:09)
[2017-01-07] MEDS: Tiotropium 18mcg/Cap 5 Capsule Inhaler Kit INHALATION SCH (08:29)
[2017-01-07] MEDS: predniSONE 20 mg Tablet PO SCH (08:29)
--- NOTE | 2017-01-07 09:52 | NUR ---
Off the unit Pt taken off the unit in wheelchair for completion of Modified Barium Swallow evaluation. No complains of increased pain, SOB or chest discomfort. VSS. Addendum: 01/07/17 at 1021 by RODRIGO WELCH RN Pt returns back to [facility]. Tele monitor replaced, pt sitting up in the chair reading newspaper.
--- NOTE | 2017-01-07 10:22 | NUR ---
Social Work: Continued d/c planning Data: Pt is on day 3 of hospitalization. EMR reviewed, pt discussed in multidisciplinary rounds. MD states pt likely to d/c in 1-2 days. [employer] spoke with Zenobia with [facility] who states she will be at the hospital around 3pm today to assess pt for return to their facility. [employer] will continue to follow. Assessment: Pt from [facility]. Plan: Pt will d/c back to [facility] in 1-2 days per MD. Reassessment to be completed today at 3pm. [employer] will continue to follow. DOREEN Massey
--- NOTE | 2017-01-07 10:35 | PCM.PNMED ---
Subjective Date of Service Jan 07, 2017 Subjective Patient seen and examined. He is doing much better today. Cough better. Vitals stable. Exam Vital Signs Vital Sign - Last Date Time Temp Pulse Resp B/P Pulse Ox O2 Delivery O2 Flow Rate FiO2 01/07/17 09:22 36.1 78 18 143/61 97 01/07/17 07:21 Room Air 01/04/17 21:11 2.00 Intake and Output 01/06/17 01/06/17 01/07/17 Cumulative From/Thru 15:00 23:00 07:00 01/03/17 21:36 - 01/07/17 06:52 Intake Total 243 ml 2057 ml Output Total 475 ml 1890 ml Balance -232 ml 167 ml Intake Oral 100 ml 1310 ml IV Total 143 ml 747 ml Output Urine Total 475 ml 1890 ml # Voids 2 # Bowel Movements 2 Exam General: No acute distress, well-developed, well-nourished, appropriately interactive HEENT: Normocephalic, atraumatic. External ears without defect. Anicteric sclerae, moist conjunctivae. Dry mucosa. Cardiovascular: Tachycardic, regular rhythm with no murmurs, rubs, or gallops appreciated Pulmonary: Decreased breath sounds bilaterally with crackles heard at both lung bases R>L, No wheezing. Use of accessory muscles. Abdomen: Bowel tones present. Soft, nontender, nondistended. No hepatosplenomegaly or masses appreciated. Psychiatric: Normal mood and affect. Alert and oriented to person, place, and time. Lab and Diagnostics Result Diagram: 01/07/17 0630 01/07/17 0630 12-lead ECG sinus or ectopic atrial tachycardia with a rate of 103 LBBB Cardiac Echo Impressions Left ventricular wall thickness is moderately increased. Left ventricular systolic function is mildly reduced. The ejection fraction is estimated to be 45-50%. There is mild global hypokinesis of the left ventricle. There is a mild dyssynchronous contraction pattern, consistent with a conduction abnormality. The right ventricle is normal size. The right ventricular systolic function is normal. The right ventricular systolic pressure is estimated at 32 mmHg assuming a right atrial pressure of 8 mm Hg. Borderline left atrial enlargement. The right atrium is moderately dilated. There is mild aortic regurgitation. There is no other significant valvular heart disease. The aortic root is normal size. There is a trivial pericardial effusion noted. Assessment & Plan Javi Avelar is an 89-year-old gentleman with a past medical history of transient ischemic attack, COPD, pulmonary hypertension, and hypertension presents with worsening shortness of breath starting 2 days prior to admission. Sepsis secondary to UTI and Pneumonia, Present on Admission, active, resolving Meets criteria with Fever, leukocytosis and tachycardia. - Conservative IV fluid management - Patient has elevated BNP, note CHF assessment below - Treat as below Pneumonia, Present on Admission, active Community Acquired Pneumonia likely as patient lives in an assisted living facility. Chest Xray shows right lower lobe consolidation. Differential includes CHF. - Recieved Ceftriaxone and azithromycin in the ED - MRSA swab, Resp Viral panel, procalcitonin, sputum culture, urinary strep pneumoniae and legionella ag - Blood cultures negative - switched to ertapenem from cetriaxone, continue azithromycin - ID consult , appreciate recs CHF (EF 45-50%) systolic, chronic, - elevated BNP noticed - Echo as noted above., EF 45-50% - as per Dr. li's note : His ejection fraction is unchanged compared to prior study performed in [facility], June 2016. -Appreciate timely consult and recss Positive Trops - Trended up mildly and then trended down - no chest pain - likely 2/2 demand ischemia, echo noted Cough (concerns for aspiration) - patient had video swallow eval , will follow recs Complicated Urinary tract infection, Present on Admission, active UA with positive nitrite, large leukocyte esterase, packed WBC, many bacteria. - - Urine culture noted, positive for Morganell Morgani, multi drug resistant, switched to ertapenem - appreciate ID recs COPD Exacerbation, Present on Admission, active Likely secondary to HCAP - Duoneb q4hwa - Budesonide q12h - Prednisone 40 mg for 1 more day, recieved 1 dose methylprednisolone 125 mg in the ED Hyponatremia, Present on Admission, active Sodium 132 , stable - asymptomatic - Will hold IV fluids as patient has elevated BNP - Monitor Hypertension, Present on Admission, active - continue home med - considering his age goal <150/90 BPH, present on admission, active - continue home meds: flomax and finasteride History of TIA Patient on Plavix per [facility] med list, will continue Patient Status: Patient is admitted under inpatient status with expected length of stay greater than 2 midnights due to severity of presenting symptoms, risk of adverse event, and complexity of treatment plan. Code Status: DNR/DNI VTE Prophylaxis: Sub-Q Heparin (Unfractionated) VTE Mechanical Devices: Intermittant Pneumatic CD Resuscitation Status: DNR/DNI:Do Not Resuscitate/Intubate Time spent 35 mins Sreekanth Boston MD Jan 07, 2017 10:35
--- NOTE | 2017-01-07 11:22 | NUR ---
Evaluation completed. MBSS completed. Rec: Honey/Pureed, ice chips ok. Medication in sauce. Discussed with RN. Please go to "Notes" then click on "Assessments and Notes" (bottom left corner of screen). Then select appropriate discipline tab on top of screen.
--- NOTE | 2017-01-07 12:19 | DRSVH ---
PROCEDURE: X-RAY BARIUM SWALLOW WITH FOOD & VIDEOGRAPHY ([id number]) INDICATIONS: dysphagia TECHNIQUE: Examination was conducted in conjunction with speech pathology per standard protocol. In the lateral projection, filming was performed of the patient swallowing. AP projection filming may also be performed with patient swallowing. COMPARISON: None. FINDINGS: Function: The oral preparatory phase appears normal, with proper containment. The subsequent oral pr opulsive phase, pharyngeal phase, and esophageal phase of swallowing also appear normal with all prof fered substances. Silent tracheobronchial aspiration identified on multiple occasions. There are pr ominent osteophytes at the C5-C6 level with mild associated posterior depression on the adjacent esop hagus. The attending physician was personally present in the room during the examination. Morphology: No cricopharyngeal bar is identified. No cervical esophageal webs. No Zenker's diverti culum. No strictures. IMPRESSION: 1. Silent tracheobronchial aspiration. 2. Prominent anterior osteophytes at the C5-C6 level with mild associated posterior depression along the adjacent esophagus. Dictated by: Omar Mcneil [facility] Interpreted: Manju Villarreal MD on 01/07/2017 at 10:54 Approved by: Manju Villarreal MD, PhD on 01/07/2017 at 12:14
--- NOTE | 2017-01-07 15:11 | NUR ---
Social Work: Continued d/c planning Data: Pt is on day 3 of hospitalization. EMR reviewed. Pt discussed in multidisciplinary rounds. MD states pt likely to d/c on Tuesday. Zenobia from [facility] came to assess pt this afternoon. They can take pt back at d/c, unless there is a change of status with him. She requested CLINICAL NURSE LEADER fax over clinicals and d/c orders on day of d/c to [phone]. Pt's daughter likely to provide transportation back to facility. Assessment: Pt from [facility], currently at baseline. Plan: Pt will d/c back to [facility] when medically stable, likely Tuesday per . [facility] assessed pt today, they can take him back. CLINICAL NURSE LEADER will fax clinicals and d/c order to [facility] on day of d/c to [phone]. DOREEN Massey
--- NOTE | 2017-01-07 17:23 | PROG NOTE ---
[address] [address] PROGRESS NOTE PATIENT: YASMANY MARIE : 1925 MR#: [id number] ADMIT: 01/04/2017 JOB ID: [id number] INFECTIOUS DISEASE FOLLOWUP: DATE: 01/07/2017 REASON FOR FOLLOWUP: Possible pulmonary infection with bacteriuria. INTERVAL HISTORY: Overnight, the patient states no fevers, chills, or sweats. His breathing is gradually improving and he denies any urinary symptoms. PHYSICAL EXAMINATION: Reveals an afebrile gentleman, temperature 36.3, pulse 67, respiratory rate 18, blood pressure 148/78. He is in no acute distress. Examination of oral cavity is unremarkable. His lungs fairly clear bilaterally. Cardiac tones without new murmur. Abdomen benign. No skin rash. LABORATORY DATA: Labs continue to improve. His white count was 38,000 a couple of days ago; it is now down to 13,000, and note that he is receiving steroids. Creatinine 0.84. Procalcitonin was 1.6 three days ago. It is now down to 0.3, so drop. Urinalysis with packed white cells. Urine did grow Morganella though the patient never had urinary symptoms. Remainder of his cultures are negative. IMAGING: We have no new imaging, other than a modified barium swallow done yesterday which showed silent tracheobronchial aspiration. IMPRESSION: It seems most likely the patient's leukocytosis and respiratory deterioration were due to some degree of aspiration in the setting of underlying chronic obstructive pulmonary disease. He is currently improving with azithromycin and ertapenem. RECOMMENDATIONS: 1. I would continue with this antibiotic regimen at least for another day or two. 2. Will continue to follow this patient with you, but hopefully he will be ready for discharge within the next 2-4 days.
--- NOTE | 2017-01-07 17:30 | NUR ---
Activity Pt has been up in the chair for all 3 meals, reports is feeling better than yesterday. Pt reports is trying to get better and doing what is asked of him by the MD. This RN encouraged pt to continue to advance his activity as much as able, however needs to rest if tires. Pt reports will continue to try and be up in the chair for all meals. Call light in reach, will continue to monitor.
[2017-01-07] MEDS: Ertapenem Inj 1,000 MG in 0.9% Sodium Chloride 50 ML IV SCH (20:05)
[2017-01-08] VITALS (10 sets, daily range): BP systolic 144–180; BP diastolic 56–81; PULSE 63–82; RESP 16–20; O2SAT 79–96
[2017-01-08] MEDS: Sodium Chloride LOK Flush 10 mL Syringe IVFLUSH SCH ×3 (01:02→16:44)
[2017-01-08] MEDS: Heparin 5,000 Unit/mL Inj SUBQ SCH ×3 (01:02→16:44)
[2017-01-08] MEDS: Budesonide 0.5 mg/2 mL Inhalation Solution NEB SCH ×2 (07:36→19:38)
[2017-01-08] MEDS: Tiotropium 18mcg/Cap 5 Capsule Inhaler Kit INHALATION SCH (08:09)
[2017-01-08] MEDS: Fluticasone-Salmeterol 500-50 Inhaler INHALATION SCH ×2 (08:09→21:31)
[2017-01-08] MEDS: predniSONE 20 mg Tablet PO SCH (08:10)
--- NOTE | 2017-01-08 09:09 | PCM.PNMED ---
Subjective Date of Service Jan 08, 2017 Subjective Siting up in chair, still a bit weak. No other problems overnight.Eating pretty well Exam Vital Signs Vital Sign - Last Date Time Temp Pulse Resp B/P Pulse Ox O2 Delivery O2 Flow Rate FiO2 01/08/17 08:59 36.6 74 16 144/56 96 Room Air 01/04/17 21:11 2.00 Intake and Output 01/07/17 01/07/17 01/08/17 Cumulative From/Thru 15:00 23:00 07:00 01/03/17 21:36 - 01/08/17 01:00 Intake Total 118 ml 78 ml 2253 ml Output Total 450 ml 2340 ml Balance -332 ml 78 ml -87 ml Intake Oral 118 ml 1428 ml IV Total 78 ml 825 ml Output Urine Total 450 ml 2340 ml # Voids 2 # Bowel Movements 2 Exam HENT; well hydrated, no lesions EYES; eleuterio, eom intact CV; no obvious murmur Resp; Bibasilar prominent crackles GI; soft non acute benign Lab and Diagnostics Result Diagram: 01/07/17 0630 01/07/17 0630 12-lead ECG sinus or ectopic atrial tachycardia with a rate of 103 LBBB Cardiac Echo Impressions Left ventricular wall thickness is moderately increased. Left ventricular systolic function is mildly reduced. The ejection fraction is estimated to be 45-50%. There is mild global hypokinesis of the left ventricle. There is a mild dyssynchronous contraction pattern, consistent with a conduction abnormality. The right ventricle is normal size. The right ventricular systolic function is normal. The right ventricular systolic pressure is estimated at 32 mmHg assuming a right atrial pressure of 8 mm Hg. Borderline left atrial enlargement. The right atrium is moderately dilated. There is mild aortic regurgitation. There is no other significant valvular heart disease. The aortic root is normal size. There is a trivial pericardial effusion noted. Assessment & Plan Javi Avelar is an 89-year-old gentleman with a past medical history of transient ischemic attack, COPD, pulmonary hypertension, and hypertension presents with worsening shortness of breath starting 2 days prior to admission. Sepsis secondary to UTI and Pneumonia, Present on Admission, active, resolved Meets criteria with Fever, leukocytosis and tachycardia. -source is UTI and pneumonia Pneumonia, probably secondary to aspiration. Present on Admission, improving Community Acquired Pneumonia likely as patient lives in an assisted living facility. Chest Xray shows right lower lobe consolidation. Differential includes CHF. - Recieved Ceftriaxone and azithromycin in the ED - MRSA swab, Resp Viral panel, procalcitonin, sputum culture, urinary strep pneumoniae and legionella ag - Blood cultures negative - switched to ertapenem (day 3) from cetriaxone, continue azithromycin (day 5) -cxr and procal in AM Complicated Urinary tract infection, Present on Admission, active - UA with positive nitrite, large leukocyte esterase, packed WBC, many bacteria. - Urine culture noted, positive for Morganell Morgani, multi drug resistant, switched to ertapenem (day 3) CHF (EF 45-50%) systolic, chronic, - elevated BNP noticed - Echo as noted above., EF 45-50% - as per Dr. li's note : His ejection fraction is unchanged compared to prior study performed in [facility], June 2016. Troponin elevation of unknown significance, poa, stable - Trended up mildly and then trended down - no chest pain - likely 2/2 demand ischemia, echo noted Cough (concerns for aspiration) - patient had video swallow eval , will follow recs COPD Exacerbation, Present on Admission, active - Likely secondary to HCAP - Duoneb q4hwa - Budesonide q12h - discontinue prednisone today Hyponatremia, Present on Admission, active - Sodium 132 , stable - asymptomatic - Will hold IV fluids as patient has elevated BNP - Monitor Hypertension, Present on Admission, active - continue home med - considering his age goal <150/90 BPH, present on admission, active - continue home meds: flomax and finasteride History of TIA Patient on Plavix per [employer] med list, will continue Patient Status: Patient is admitted under inpatient status with expected length of stay greater than 2 midnights due to severity of presenting symptoms, risk of adverse event, and complexity of treatment plan. Code Status: DNR/DNI VTE Prophylaxis: Sub-Q Heparin (Unfractionated) VTE Mechanical Devices: Intermittant Pneumatic CD Resuscitation Status: DNR/DNI:Do Not Resuscitate/Intubate Orlando Giang MD Jan 08, 2017 09:09 Orlando Giang MD Jan 08, 2017 09:09
--- NOTE | 2017-01-08 18:29 | NUR ---
Mentation Patient alert and oriented X2. Able to make needs known. Denies pain or discomfort. up for all 3 meals to the chair. per Tele S73, 60-80's, 1st degree block, IVCD, and PVc's. No sign and symptoms of cardiac or respiratory distress noted. last BM yesterday per patient. Call light with in reach for safety. Stable mood. Stable vital signs. Continue to monitor Vital signs, pain, and safety.
[2017-01-08] MEDS: Ertapenem Inj 1,000 MG in 0.9% Sodium Chloride 50 ML IV SCH (21:27)
[2017-01-09] VITALS (11 sets, daily range): BP systolic 137–175; BP diastolic 58–74; PULSE 60–72; RESP 16–20; O2SAT 94–97
[2017-01-09] MEDS: Sodium Chloride LOK Flush 10 mL Syringe IVFLUSH SCH ×3 (00:18→16:44)
[2017-01-09] MEDS: Heparin 5,000 Unit/mL Inj SUBQ SCH ×3 (00:18→16:43)
[2017-01-09 07:00] LABS: BASOPHILS % (AUTO) 0.1 % (0-3); EOSINOPHILS % (AUTO) 0.1 % (0-5); Mean Corpuscular Volume 89.5 fL (81-100); NEUTROPHILS % (AUTO) 80.5 % (40-74); Platelet Count 248 bil/L (150-400)
[2017-01-09] MEDS: Fluticasone-Salmeterol 500-50 Inhaler INHALATION SCH ×2 (08:08→20:22)
[2017-01-09] MEDS: Tiotropium 18mcg/Cap 5 Capsule Inhaler Kit INHALATION SCH (08:08)
--- NOTE | 2017-01-09 08:08 | DRSVH ---
PROCEDURE: X-RAY CHEST ONE VIEW, PORTABLE ([id number]) INDICATIONS: cough TECHNIQUE: One view of the chest was acquired. COMPARISON: [facility], CR, XR CHEST 1VW (PORTABLE), 01/03/2017, 21:39. FINDINGS: Surgical changes and devices: pull tab dealer leads are seen over the chest. Lungs and pleura: No pleural effusions or pneumothorax. Lungs are clear of acute infiltrates. There increased chronic markings and hyperinflated lungs.. Mediastinum: Mediastinal contours appear normal. Heart size is normal. Bones and chest wall: No suspicious bony lesions. Overlying soft tissues appear unremarkable. IMPRESSION: Acute disease is not seen in the semi-upright portable chest. Chronic lung changes are pr esent. Dictated by: Darwin Waters M.D. on 01/09/2017 at 8:05 Approved by: Darwin Waters M.D. on 01/09/2017 at 8:06
--- NOTE | 2017-01-09 08:19 | PCM.PNMED ---
Subjective Date of Service Jan 09, 2017 Subjective Overall improving, breathing getting better but not back to base line. No other problems noted overnight or for today. Eating OK and ambulating by self. Exam Vital Signs Vital Sign - Last Date Time Temp Pulse Resp B/P Pulse Ox O2 Delivery O2 Flow Rate FiO2 01/09/17 06:20 72 01/09/17 04:25 36.4 18 175/74 95 Room Air 01/04/17 21:11 2.00 Intake and Output 01/08/17 01/08/17 01/09/17 Cumulative From/Thru 15:00 23:00 07:00 01/03/17 21:36 - 01/09/17 05:23 Intake Total 0 ml 1036 ml 3289 ml Output Total 325 ml 500 ml 3165 ml Balance -325 ml 536 ml 124 ml Intake Oral 0 ml 1036 ml 2464 ml IV Total 0 ml 825 ml Output Urine Total 325 ml 500 ml 3165 ml # Voids 2 # Bowel Movements 0 2 Exam Skin; warm, dry with out rash CV; reg, no murm,ur Resp; Med air movement with larsen end expiratory wheezing, mild GI; soft non acute benign No edema Lab and Diagnostics Result Diagram: 01/09/17 0625 01/09/17 0625 12-lead ECG sinus or ectopic atrial tachycardia with a rate of 103 LBBB Cardiac Echo Impressions Left ventricular wall thickness is moderately increased. Left ventricular systolic function is mildly reduced. The ejection fraction is estimated to be 45-50%. There is mild global hypokinesis of the left ventricle. There is a mild dyssynchronous contraction pattern, consistent with a conduction abnormality. The right ventricle is normal size. The right ventricular systolic function is normal. The right ventricular systolic pressure is estimated at 32 mmHg assuming a right atrial pressure of 8 mm Hg. Borderline left atrial enlargement. The right atrium is moderately dilated. There is mild aortic regurgitation. There is no other significant valvular heart disease. The aortic root is normal size. There is a trivial pericardial effusion noted. Assessment & Plan Javi Avelar is an 89-year-old gentleman with a past medical history of transient ischemic attack, COPD, pulmonary hypertension, and hypertension presents with worsening shortness of breath starting 2 days prior to admission. Sepsis secondary to UTI and Pneumonia, Present on Admission, active, resolved Meets criteria with Fever, leukocytosis and tachycardia. -source is UTI and pneumonia Pneumonia, probably secondary to aspiration. Present on Admission, improving Community Acquired Pneumonia likely as patient lives in an assisted living facility. Chest Xray shows right lower lobe consolidation. Differential includes CHF. - Recieved Ceftriaxone and azithromycin in the ED - MRSA swab, Resp Viral panel, procalcitonin, sputum culture, urinary strep pneumoniae and legionella ag - Blood cultures negative - switched to ertapenem (day 4) from cetriaxone, continue azithromycin (day 6) -cxr from my read from today looks improved, await radiology read Complicated Urinary tract infection, Present on Admission, active - UA with positive nitrite, large leukocyte esterase, packed WBC, many bacteria. - Urine culture noted, positive for Morganell Morgani, multi drug resistant, switched to ertapenem (day 4) CHF (EF 45-50%) systolic, chronic, - elevated BNP noticed - Echo as noted above., EF 45-50% - as per Dr. Talamantes's note : His ejection fraction is unchanged compared to prior study performed in [facility], June 2016. Troponin elevation of unknown significance, poa, stable - Trended up mildly and then trended down - no chest pain - likely 2/2 demand ischemia, echo noted Cough (concerns for aspiration) - patient had video swallow eval , will follow recs COPD Exacerbation, Present on Admission, active - Likely secondary to HCAP - Duoneb q4hwa - Budesonide q12h - discontinue prednisone 01-08-17) Hyponatremia, Present on Admission, stable - Sodium 133 , improving - asymptomatic - Will hold IV fluids as patient has elevated BNP - Monitor Hypertension, Present on Admission, stable - continue home med - considering his age goal <150/90 BPH, present on admission, active - continue home meds: flomax and finasteride History of TIA Patient on Plavix per [employer] [facility] list, will continue Patient Status: Patient is admitted under inpatient status with expected length of stay greater than 2 midnights due to severity of presenting symptoms, risk of adverse event, and complexity of treatment plan. Code Status: DNR/DNI Disposition -pcp is Twila FERMIN -lives at [facility], assisted VTE Prophylaxis: Sub-Q Heparin (Unfractionated) VTE Mechanical Devices: Intermittant Pneumatic CD Resuscitation Status: DNR/DNI:Do Not Resuscitate/Intubate Orlando Giang MD Jan 09, 2017 08:19
[2017-01-09] MEDS: Budesonide 0.5 mg/2 mL Inhalation Solution NEB SCH ×2 (09:35→20:23)
--- NOTE | 2017-01-09 16:56 | NUR ---
Mentation Patient is alert and able to make needs known. Denies any pain or discomfort. Up in chair for all 3 meals. Stable vital signs and on Tele. Recieved all PO medications as ordered with out any swallowing issues. Uses FWW for ambulation. call light with in reach and uses appropriately. No cardiac or respiratory distress noted. Denies abdominal pain or discomfort. Stable mood. continue to monitor.
--- NOTE | 2017-01-09 17:23 | NUR ---
LONA signed. Candice Thomas TECHNICAL TRANSLATOR
--- NOTE | 2017-01-09 17:41 | NUR ---
Telemetry per monitoring analyst S74, 60-80's, 1st degree block, IVCD, PVC.
--- NOTE | 2017-01-09 17:43 | NUR ---
Social Work- Readiness for D/C Data: EMR reviewed. Pt discussed in multidisciplinary rounds. Pt is not medically ready for d/c, anticipate tomorrow. Pt resides at [facility] and he has been accepted to return. Pt agreeable to d/c plan. Pt to discharge home via POV. SW will continue to follow. Assessment: Pt who resides at [facility] Plan: Pt to discharge home via POV. No d/c needs. SW will continue to follow. DOREEN Neri
[2017-01-09] MEDS: Ertapenem Inj 1,000 MG in 0.9% Sodium Chloride 50 ML IV SCH (20:09)
[2017-01-10] VITALS (11 sets, daily range): BP systolic 113–162; BP diastolic 55–72; PULSE 59–76; RESP 18; O2SAT 94–96
[2017-01-10] MEDS: Sodium Chloride LOK Flush 10 mL Syringe IVFLUSH SCH ×3 (00:30→16:35)
[2017-01-10] MEDS: Heparin 5,000 Unit/mL Inj SUBQ SCH ×3 (00:30→16:35)
--- NOTE | 2017-01-10 05:52 | NUR ---
Improvement Pt. continues to improve. Negative N/V, SOB, and pain. VSS, RA, IV Line running 60 Ml/Hr NS. Telemetry is not great thou SR 60's 1 st degree HB IVCD PAC's and PVC's.
[2017-01-10 07:41] LABS: BASOPHILS % (AUTO) 0.1 % (0-3); EOSINOPHILS % (AUTO) 0.9 % (0-5); Mean Corpuscular Hemoglobin 30.8 pg (27.0-35.0); Mean Corpuscular Volume 90.1 fL (81-100); NEUTROPHILS % (AUTO) 74.1 % (40-74); Platelet Count 252 bil/L (150-400)
[2017-01-10] MEDS: Budesonide 0.5 mg/2 mL Inhalation Solution NEB SCH (08:30)
[2017-01-10] MEDS: Fluticasone-Salmeterol 500-50 Inhaler INHALATION SCH ×2 (09:14→20:10)
--- NOTE | 2017-01-10 09:17 | PCM.PNMED ---
Subjective Date of Service Jan 10, 2017 Subjective Improving but still tired, some SOB, and persistent cough. No other problems noted. Exam Vital Signs Vital Sign - Last Date Time Temp Pulse Resp B/P Pulse Ox O2 Delivery O2 Flow Rate FiO2 01/10/17 09:11 74 01/10/17 09:01 36.4 18 150/63 95 Room Air 01/04/17 21:11 2.00 Intake and Output 01/09/17 01/09/17 01/10/17 Cumulative From/Thru 15:00 23:00 07:00 01/03/17 21:36 - 01/10/17 05:45 Intake Total 300 ml 872 ml 150 ml 4611 ml Output Total 650 ml 275 ml 4090 ml Balance -350 ml 597 ml 150 ml 521 ml Intake Oral 300 ml 872 ml 50 ml 3686 ml IV Total 0 ml 100 ml 925 ml Output Urine Total 650 ml 275 ml 4090 ml # Voids 3 1 6 # Bowel Movements 0 2 1 5 Exam Eyes; eleuterio, eom intact Skin; warm, dry with out rash CV; reg, no murmmur Resp; Mod air movement with scattered end expitory wheezing GI; soft non acute benign No edema Lab and Diagnostics Result Diagram: 01/10/17 0615 01/10/17 0615 12-lead ECG sinus or ectopic atrial tachycardia with a rate of 103 LBBB Cardiac Echo Impressions Left ventricular wall thickness is moderately increased. Left ventricular systolic function is mildly reduced. The ejection fraction is estimated to be 45-50%. There is mild global hypokinesis of the left ventricle. There is a mild dyssynchronous contraction pattern, consistent with a conduction abnormality. The right ventricle is normal size. The right ventricular systolic function is normal. The right ventricular systolic pressure is estimated at 32 mmHg assuming a right atrial pressure of 8 mm Hg. Borderline left atrial enlargement. The right atrium is moderately dilated. There is mild aortic regurgitation. There is no other significant valvular heart disease. The aortic root is normal size. There is a trivial pericardial effusion noted. Assessment & Plan Javi Avelar is an 89-year-old gentleman with a past medical history of transient ischemic attack, COPD, pulmonary hypertension, and hypertension presents with worsening shortness of breath starting 2 days prior to admission. Sepsis secondary to UTI and Pneumonia, Present on Admission, active, resolved Meets criteria with Fever, leukocytosis and tachycardia. -source is UTI and pneumonia Pneumonia, probably secondary to aspiration. Present on Admission, improving Community Acquired Pneumonia likely as patient lives in an assisted living facility. Chest Xray shows right lower lobe consolidation. Differential includes CHF. - Recieved Ceftriaxone and azithromycin in the ED - MRSA swab, Resp Viral panel, procalcitonin, sputum culture, urinary strep pneumoniae and legionella ag - Blood cultures negative - switched to ertapenem (day 5) from cetriaxone -discontinue azithromycin today -cxr cleaed Complicated Urinary tract infection, Present on Admission, active - UA with positive nitrite, large leukocyte esterase, packed WBC, many bacteria. - Urine culture noted, positive for Morganell Morgani, multi drug resistant, switched to ertapenem (day 5) , continue for today CHF (EF 45-50%) systolic, chronic, - elevated BNP noticed - Echo as noted above., EF 45-50% - as per Dr. Talamantes's note : His ejection fraction is unchanged compared to prior study performed in [facility], June 2016. Troponin elevation of unknown significance, poa, stable - Trended up mildly and then trended down - no chest pain - likely 2/2 demand ischemia, echo noted Cough (concerns for aspiration) - patient had video swallow eval , will follow recs COPD Exacerbation, Present on Admission, active - Likely secondary to HCAP - Duoneb q4hwa - Budesonide q12h - discontinue prednisone 01-08-17) Hyponatremia, Present on Admission, stable - Sodium 133 , improving - asymptomatic - Will hold IV fluids as patient has elevated BNP - Monitor Hypertension, Present on Admission, stable - continue home med - considering his age goal <150/90 BPH, present on admission, active - continue home meds: flomax and finasteride History of TIA Patient on Plavix per [employer] [facility] list, will continue Patient Status: Patient is admitted under inpatient status with expected length of stay greater than 2 midnights due to severity of presenting symptoms, risk of adverse event, and complexity of treatment plan. Code Status: DNR/DNI Disposition -pcp is Twila FERMIN -lives at [facility], assisted VTE Prophylaxis: Sub-Q Heparin (Unfractionated) VTE Mechanical Devices: Intermittant Pneumatic CD Resuscitation Status: DNR/DNI:Do Not Resuscitate/Intubate Orlando Giang MD Jan 10, 2017 09:16
[2017-01-10] MEDS: Tiotropium 18mcg/Cap 5 Capsule Inhaler Kit INHALATION SCH (09:46)
--- NOTE | 2017-01-10 13:56 | NUR ---
Social Work-readiness for discharge: Data:EMR Reviewed. Pt is on day 6 of hospitalization for pneumonia per H&P. Pt is not medically stable at this time anticipate 1-2 more days. RUBI spoke with Zenobia at [facility] who states they are still fine to accept pt back when medically stable. Zenobia would like to look at updated clinicals, RUBI faxed information to [phone] for review. [facility] has PT at there facility for pt. RUBI will continue to follow. Assessment:Pt who resides at [facility]. Plan:Pt to discharge back to [facility] when medically stable. RUBI will continue to follow. DOREEN Rodriguez
--- NOTE | 2017-01-10 18:24 | NUR ---
Mentation Patient is alert, calm and cooperative with all care. Denies pain or discomfort. up for all meals in chair. Dr. calixto at bed side this shift. Uses FWW for ambulation with 1 PA. continue to monitor.
--- NOTE | 2017-01-10 18:56 | PROG NOTE ---
[address] [address] PROGRESS NOTE PATIENT: YASMANY MARIE : 1925 MR#: [id number] ADMIT: 01/04/2017 JOB ID: [id number] DATE: 01/10/2017 REASON FOR FOLLOWUP: Possible pulmonary infection with bacteriuria. INTERVAL HISTORY: The patient reports he continues to feel very tired. He states any exertion at all leaves him exhausted. He no longer has much in the way of cough and denies significant shortness of breath. He has no fevers, chills, sweats, or dysuria. PHYSICAL EXAMINATION: Reveals a comfortable gentleman, no acute distress. Temp 36.4, pulse 76, respiratory rate 18. Blood pressure 113/55. He is saturating 94% on room air and he is in no acute distress. The patient appears depressed and that he is not improving the way he expected. His oral cavity is notable for some white plaque-like material on the left greater than the right buccal mucosa. There is nothing in the pharynx itself. The lungs are relatively clear with some diminished breath sounds bilaterally but improved over his admission examination. Abdomen soft and nontender. No skin rashes noted. White count is 15,000, but this almost certainly reflects the steroids which stopped only about 48 hours ago. Differential white count is unimpressive. Procalcitonin was as high as 1.6 a week ago. It is now down to 0.1, which reflects a greater than 90% drop. Serologic studies include the urine Legionella and pneumococcal antigens which are negative. Micro includes negative blood cultures, negative MRSA screen, negative sputum. IMAGING: Includes a chest x-ray last done on the , which is interpreted as chronic lung changes only without any acute infiltrate. I agree with this interpretation and see no acute infiltrate. IMPRESSION: The patient clearly had some bacterial process when he was admitted and I suspect this was a pulmonary process, but at this point, I think he is essentially infection-free. He has received a full course of azithromycin and that was stopped this morning and he is still receiving ertapenem. His procalcitonin has declined to normal. His persistent leukocytosis is almost certainly on the basis of the steroids he had been receiving and which were stopped less than 48 hours ago. These were intended for COPD exacerbation. RECOMMENDATIONS: 1. I would continue with ertapenem through tomorrow morning but then discontinue it. 2. From an Infectious Disease point of view, I think the patient could be discharged at any time back to his living situation in [facility]. 3. ID will go ahead and sign off at this time as I do not think there is any active ongoing infection but please do not hesitate to call me if there are additional concerns.
[2017-01-10] MEDS: Ertapenem Inj 1,000 MG in 0.9% Sodium Chloride 50 ML IV SCH (20:10)
[2017-01-11] VITALS (7 sets, daily range): BP systolic 110–136; BP diastolic 60–66; PULSE 68–85; RESP 16–18; O2SAT 85–97
[2017-01-11] MEDS: Heparin 5,000 Unit/mL Inj SUBQ SCH ×2 (00:02→08:08)
[2017-01-11] MEDS: Sodium Chloride LOK Flush 10 mL Syringe IVFLUSH SCH ×2 (00:02→08:08)
--- NOTE | 2017-01-11 04:52 | NUR ---
Urinary retention/sleep/cough PT slept well all night but when awake for care he had a very moist congested cough, he was unable to clear the phlegm easily so he was given some suction for self section, he is still SOBOE. PT had not voided much during the night until 0300 when he voided 400mls in the urinal while lying flat in bed; he had a300ml PVR at this time.
[2017-01-11 07:02] LABS: BASOPHILS % (AUTO) 0.1 % (0-3); MONOCYTES % (AUTO) 8.6 % (4-12); Mean Corpuscular Hemoglobin 30.9 pg (27.0-35.0); Mean Corpuscular Volume 89.9 fL (81-100); Platelet Count 255 bil/L (150-400)
[2017-01-11] MEDS: Fluticasone-Salmeterol 500-50 Inhaler INHALATION SCH (08:08)
--- NOTE | 2017-01-11 11:29 | NUR ---
Social Work-readiness for discharge: Data:EMR reviewed. Pt is on day 7 of hospitalization for pneumonia per H&P. Pt is likely medically stable later today or tomorrow. RUBI spoke with Zenobia at [facility] who confirms she reviewed clinical information for yesterday and they are able to accept pt back whenever medically stable. Zenobia would like to be notified at discharge and have information faxed into [phone]. SW will continue to follow. Assessment:Pt who resides at Assisted living. Plan:Pt to discharge back to [facility] when medically stable. Zenobia would like to be notified at discharge and have information faxed into [phone]. SW will continue to follow. DOREEN Rodriguez
[2017-01-11] MEDS ORDERED: FURO-129 PO (13:07)
--- NOTE | 2017-01-11 13:18 | PCM.DC.MED ---
Discharge Summary Date of Service Jan 11, 2017 Dates of Hospitalization Date of Hospital Admission Jan 04, 2017 at 00:44 Date of Discharge: Jan 11, 2017 Providers: Admitting Physician: Ellis Hernandez MD Primary Care Physician: Twila Chang Attending Physician: Nicko Winkler MD Diagnosis at Time of Discharge Diagnosis at Time of Discharge Sepsis secondary to UTI, aspiration pneumonia. Chronic systolic heart failure, elevated troponin, COPD exacerbation, hyponatremia, hypertension, cerebrovascular disease, silent aspiration. Consultations Infectious disease Procedures XRay, CTs & MRIs 1. CXR MPRESSION: 1. Hyperinflation suggesting underlying COPD. Correlate clinically. 2. Mid/basilar patchy air space opacities suspicious for bilateral pneumonia. 3. Mild blunting of the right costophrenic angle and small right pleural effusion may be present versus pleural scarring. 2. CXR IMPRESSION: Acute disease is not seen in the semi-upright portable chest. Chronic lung changes are present Barium swallow IMPRESSION: 1. Silent tracheobronchial aspiration. 2. Prominent anterior osteophytes at the C5-C6 level with mild associated posterior depression along the adjacent esophagus. ECG 12 Lead sinus or ectopic atrial tachycardia with a rate of 103 LBBB Cardiac Echo Impression Left ventricular wall thickness is moderately increased. Left ventricular systolic function is mildly reduced. The ejection fraction is estimated to be 45-50%. There is mild global hypokinesis of the left ventricle. There is a mild dyssynchronous contraction pattern, consistent with a conduction abnormality. The right ventricle is normal size. The right ventricular systolic function is normal. The right ventricular systolic pressure is estimated at 32 mmHg assuming a right atrial pressure of 8 mm Hg. Borderline left atrial enlargement. The right atrium is moderately dilated. There is mild aortic regurgitation. There is no other significant valvular heart disease. The aortic root is normal size. There is a trivial pericardial effusion noted. Brief History Hospital Course Principle Diagnosis: Sepsis present on admission secondary to UTI and aspiration pneumonia. Secondary Diagnosis:Chronic systolic heart failure, elevated troponin, COPD exacerbation, hyponatremia, hypertension, cerebrovascular disease, silent aspiration Physical exam: patient was seen and examined on the day of discharge Operations During Hospitalization: none Procedures and Imaging Studies During Hospitalization: CXR ECG Barium swallow test CONSULTATIONS: Infectious disease Hospital Course: Patient is a 89 yo with PMH of COPD, TIA, cerebrovascular disease, chronic systolic CHF with ejection fraction 45%, was admitted to [facility] for evaluation and management of shortness of breath. Patient was diagnosed with Sepsis present on admission secondary to UTI (Morganella and Streptococcus ) and aspiration pneumonia. Blood cultures were negative. Patient was treated with ceftriaxone and azithromycin, and Ertapenem. Infectious disease helped with Antibiotic management. Patient also had barium study test which showed silent aspirations. After patient improved he was discharged home with recommendation to follow up with his PCP for further management of his medical problems. Patient has hyponatremia, he is taking hydrochlorothiazide each may worsen hyponatremia and time. He also has chronic systolic heart failure, I will change his hydrochlorothiazide to Lasix 20 mg every other day. 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 During discharge patient was allert, oriented, able to make own informed decisions. We discussed possible severe side effects, adverse reactions, benefits, risks, alternatives of current and newly prescribed medications and diagnostic procedures. Patient verbalized understanding and agreed to current plan of care and discharge. TIME SPENT IN DISCHARGE ACTIVITY: Face to face activity greater then 30 minutes spent in discharge activity. 1. Discussed with patient/ family re: discharge plan of care/treatment, and follow up care/services. 2. Patient/family agreed with discharge plan and further plan of care, all questions were answered/addressed, no further questions at the time of discharge. Exam Vital Signs (Last) Date Time Temp Pulse Resp B/P Pulse Ox O2 Delivery O2 Flow Rate FiO2 01/11/17 10: 85 01/11/17 09:35 36.5 18 124/62 96 Room Air Test 01/03/17 22:47 01/03/17 22:59 01/03/17 23:04 01/04/17 04:30 Prothrombin Time 10.5sec (8.1-12.5) Prothromb Time International Ratio 0.98ratio Lactic Acid Level 1.7mmol/L (0.4-2.0) Magnesium Level 1.5mg/dL (1.6-2.6) Total Bilirubin 0.8mg/dL (0.0-1.2) Aspartate Amino Transf (AST/SGOT) 23U/L (0-50) Alanine Aminotransferase (ALT/SGPT) 25U/L (0-44) Alkaline Phosphatase 75U/L (25-160) Pro-B-Type Natriuretic Peptide 2156pg/mL (0-486) Total Protein 6.8g/dL (6.4-8.4) Albumin 3.7g/dL (3.4-5.0) Urine Legionella pneumophilia Ag Negative (Negative) Urine Color Yellow (YELLOW) Urine Appearance Cloudy (CLEAR,HAZY) Urine pH 7.5 (5.0-8.0) Urine Specific [place] 1.015 (1.003-1.035) Urine Protein Tracemg/dL (NEG,TRACE) Urine Glucose (UA) Negativemg/dL (NEGATIVE) Urine Ketones Negativemg/dL (NEGATIVE) Urine Occult Blood Trace (NEGATIVE) Urine Nitrite Positive (NEGATIVE) Urine Bilirubin Negative (NEGATIVE) Urine Urobilinogen Normalmg/dL (NORMAL) Urine Leukocyte Esterase Large (NEGATIVE) Urine RBC 3-10/hpf (0-2) Urine WBC Packed/hpf (0-5) Urine Epithelial Cells Few/hpf (NONE-MOD) Urine Crystals None seen (NONE SEEN) Urine Bacteria Many/hpf (NONE-FEW) Urine Hyaline Casts None/lpf (NONE) Urine Granular Casts None seen (NONE SEEN) Urine Waxy Casts None seen (NONE SEEN) Urine Red Blood Cell Casts None seen (NONE SEEN) Urine White Blood Cell Casts None seen (NONE SEEN) Urine Mucus None seen (None Seen) Urine Trichomonas None seen (NONE SEEN) Urine Yeast None (NONE SEEN) Urinalysis Comment None Urine Culture Reflexed Indicated Band Neutrophils % 1% (1-5) Test 01/04/17 11:40 01/11/17 06:30 Troponin T 0.010ug/L (0.0-0.011) White Blood Count 13.8th/mm3 (3.8-10.1) Red Blood Count 4.17mil/mm3 (4.40-5.80) Hemoglobin 12.9g/dL (13.8-17.2) Hematocrit 37.5% (41.0-50.0) Mean Corpuscular Volume 89.9fL (81-100) Mean Corpuscular Hemoglobin 30.9pg (27.0-35.0) Mean Corpuscular Hemoglobin Concent 34.4% (32.0-37.0) Red Cell Distribution Width 14.9% (12.3-15.4) Platelet Count 255bil/L (150-400) Neutrophils (%) (Auto) 76.0% (40-74) Lymphocytes (%) (Auto) 11.7% (14-46) Monocytes (%) (Auto) 8.6% (4-12) Eosinophils (%) (Auto) 1.0% (0-5) Basophils (%) (Auto) 0.1% (0-3) Sodium Level 134mEq/L (134-144) Potassium Level 4.6mEq/L (3.5-5.2) Chloride Level 101mEq/L (97-108) Carbon Dioxide Level 21mmol/L (18-29) Blood Urea Nitrogen 28mg/dL (8-27) Creatinine 0.87mg/dL (0.76-1.27) Estimat Glomerular Filtration Rate 88mL/min (>59) Glucose Level 95mg/dL (60-99) Calcium Level 9.9mg/dL (8.5-10.1) Procalcitonin 0.10ng/mL (0.00-0.08) Discharge Medications Discharge Medications Atorvastatin (Lipitor) 20 Mg Tablet 20 MG PO HS (Reported) Budesonide/Formoterol 160-4.5 mcg Inh (Symbicort 160-4.5 mcg Inh) 120 Puff Inhaler 2 PUFF INHALATION BID (Reported) Carvedilol (Carvedilol) 25 Mg Tablet 25 MG PO BID (Reported) Clopidogrel Bisulfate (Plavix) 75 Mg Tablet 75 MG PO DAILY (Reported) Finasteride (Finasteride) 5 Mg Tablet 5 MG PO DAILY (Reported) Furosemide (Lasix) 20 Mg Tablet 20 MG PO every other day Prescribed by: PEMA PARSONS MD Hydralazine (Hydralazine) 100 Mg Tablet 100 MG PO BID (Reported) Losartan/HCTZ 100-25 mg (Losartan/HCTZ 100-25 mg) 1 Each Tablet 1 TABLET PO HS ( Reported) Tamsulosin (Flomax) 0.4 Mg Capsule 0.4 MG PO DAILY (Reported) Tiotropium [place] (Spiriva) 18 Mcg Cap.w.dev 18 MCG IH DAILY (Reported) Followup Plan Discharge Diet: Other (dysphagia diet) Follow-up with PCP in: 1 week Nicko Winkler MD Jan 11, 2017 13:18
[2017-01-11] MEDS ORDERED: Ertapenem Inj 1,000 MG in 0.9% Sodium Chloride 50 ML IV SCH (14:10)
[2017-01-11] MEDS ORDERED: 0.9% Sodium Chloride 100 ML ONE (14:51)
--- NOTE | 2017-01-11 14:52 | NUR ---
Social Work-discharge: Data:EMR Reviewed. Pt is on day 7 of hospitalization for pneumonia per H&P. Pt is medically stable for discharge. PT has cleared pt for return to [facility]. RUBI spoke with [facility] who is agreeable for pt to return, discharge information faxed into [phone]. [facility] has PT there if needed. Pt's daughter to provide transport back. All updated and agreeable to plan. Assessment:Pt to return to [facility]. Plan:Pt to discharge back to [facility] today via POV. [facility] is agreeable for pt to return and discharge information has been faxed. All updated and agreeable to plan. DOREEN Rodriguez
--- NOTE | 2017-01-11 15:44 | NUR ---
Discharge Pt discharged to previous living arrangement at [facility] at 1543. Taken off unit in wheelchair by [employer], accompanied by daughter. All belongings sent home with pt. Discharge instructions given and explained. Rx for lasix sent with pt. Care notes provided. Instructed to follow up with PCP in 1 week. Pt and daughter vocalize understanding. Pt received final dose of invanz IV prior to discharge.
== END 2017-01-11 15:42 | disposition home or self-care (01) | DRG 871 ==
LOC: EDBD 21:31 → SED 21:31 → MPC 01-04 00:44
PROVIDERS: ADMIT Hospitalist; ATTEND Hospitalist
PROC: 4A033R1 Measurement of Arterial Saturation, Peripheral, Percutaneous Approach (ICD-10-PCS; principal; 2017-01-04)
DX: A41.9 Sepsis, unspecified organism (principal); J69.0 Pneumonitis due to inhalation of food and vomit; J44.1 Chronic obstructive pulmonary disease with (acute) exacerbation; E87.1 Hypo-osmolality and hyponatremia; N39.0 Urinary tract infection, site not specified; I50.22 Chronic systolic (congestive) heart failure; I24.8 Other forms of acute ischemic heart disease; I10 Essential (primary) hypertension; Z79.02 Long term (current) use of antithrombotics/antiplatelets; Z66 Do not resuscitate; Z86.73 Personal history of transient ischemic attack (TIA), and cerebral infarction without residual deficits; I27.2 Other secondary pulmonary hypertension; N40.0 Benign prostatic hyperplasia without lower urinary tract symptoms; Z87.891 Personal history of nicotine dependence